=== PATIENT | male | born 1950 | race African-American/Black ===

== ENCOUNTER 2017-06-14 04:38 | Emergency (ER) | payer MEDICAID ==
[~2017-06-14] VITALS: Ht 185.4 cm; Wt 75.0 kg
[~2017-06-14 04:38] MED LIST: LEVO500T2 PO
[2017-06-14 11:05] VITALS: BP 131/86
== END 2017-06-14 11:22 | disposition home or self-care (01) ==
LOC: ER 05:04
DX: S02.82XA Fracture of other specified skull and facial bones, left side, initial encounter for closed fracture (principal); S01.112A Laceration without foreign body of left eyelid and periocular area, initial encounter; Y08.89XA Assault by other specified means, initial encounter; Y93.89 Activity, other specified; Y92.89 Other specified places as the place of occurrence of the external cause; Y99.8 Other external cause status
CPT/HCPCS: 12011; 70450; 70486; 99284; Z7610

== ENCOUNTER 2018-06-05 23:04 | Inpatient (IN) | payer MEDICAID ==
[~2018-06-05] VITALS: Ht 185.4 cm; Wt 68.0 kg
[2018-06-06] VITALS (7 sets, daily range): BP systolic 117–134; BP diastolic 62–70
[2018-06-06] MEDS ORDERED: SODIUM CHLORIDE 0.9% 1,000 ML IV ONE ×2 (00:38)
[2018-06-06] MEDS ORDERED: METHYLPREDNISOLONE SOD SUCC 125 MG/2 ML VIAL IV STA (00:38)
[2018-06-06] MEDS ORDERED: IPRATROPIUM BROMIDE (0.02%) 0.5MG/2.5ML NEB HHN STA (00:38)
[2018-06-06] MEDS ORDERED: ONDANSETRON HCL 4MG/2ML INJ IV STA (00:38)
[2018-06-06] MEDS ORDERED: GUAIFENESIN/CODEINE 200-20MG/10ML UDC PO ONE (00:45)
[2018-06-06 01:24] LABS: BASOPHILS % 0.7 % (0.0-2.0); EOSINOPHILS % 2.7 % (0.0-5.0); HEMATOCRIT. 46.8 % (42.0-52.0); HEMOGLOBIN. 15.1 g/dL (14.0-18.0); LYMPHOCYTES % 20.5 % (20.0-50.0); MEAN CORPUSCULAR HEMOGLOBIN 30.3 pg (28.0-32.0); MEAN PLATELET VOLUME 8.8 fl (7.4-10.4); MONOCYTES % 12.2 % (2.0-8.0); NEUTROPHILS % 63.9 % (40.0-76.0); PLATELET 118 x1000/uL (130-400); RED BLOOD CELL COUNT 4.98 mill/uL (4.7-6.1); RED CELL DISTRIBUTION WIDTH 14.7 % (11.6-14.6)
[2018-06-06 01:35] LABS: CHLORIDE 101 mEq/L (98-107)
[2018-06-06] MEDS: ALBUTEROL (0.083%) 2.5MG/3ML NEB HHN SCH ×3 (01:38→02:15)
[2018-06-06 02:14] LABS: *AMPHETAMINES SCREEN URINE NEGATIVE (NEGATIVE); *BARBITURATES SCREEN URINE NEGATIVE (NEGATIVE); *BENZODIAZEPINES SCREEN URINE NEGATIVE (NEGATIVE)
[2018-06-06 02:15] LABS: *COCAINE SCREEN URINE PRESUMTIVE POSITIVE (NEGATIVE); CANNABINOID URINE SCREEN NEGATIVE (NEGATIVE); METHADONE URINE SCREEN NEGATIVE (NEGATIVE); OPIATES URINE SCREEN NEGATIVE (NEGATIVE); PHENCYCLIDINE URINE SCREEN PRESUMTIVE POSITIVE (NEGATIVE)
[2018-06-06 02:24] LABS: BG BASE EXCESS 4.1 mmol/L (-2.0-2.0); BG CARBOXYHEMOGLOBIN 4.6 % (0.5-1.5); BG FRACTION INSPIRED OXYGEN 40; BG HCO3 ACT 35.5 mmol/L (22.0-26.0); BG METHEMOGLOBIN 0.2 % (0.0-1.5); BG OXYGEN SATURATION 98.9 % (92.0-98.5); BG OXYHEMOGLOBIN 94.2 % (94.0-97.0); BG PCO2 91.1 mmHg (35.0-45.0); BG PH 7.209 (7.350-7.450); BG PO2 191.1 mmHg (75.0-100.0); BG SAMPLE SITE RIGHT RADIAL; BG TOTAL HEMOGLOBIN 14.8 g/dL (12.0-18.0)
[2018-06-06] MEDS ORDERED: LORAZEPAM 2MG/ML CPJ IV PRN (06:30)
[2018-06-06] MEDS ORDERED: LEVOFLOXACIN 500MG PREMIX 100 ML IV SCH ×2 (06:30→09:00)
[2018-06-06] MEDS ORDERED: IPRATROPIUM/ALBUTEROL 0.5-3(2.5)MG/3ML NEB INH PRN (06:30)
[2018-06-06] MEDS ORDERED: MORPHINE SULFATE 10 MG/ML CPJ IV PRN (06:30)
[2018-06-06] MEDS ORDERED: ONDANSETRON HCL 4MG/2ML INJ IV PRN (06:30)
[2018-06-06] MEDS ORDERED: MAGNESIUM/ALUMINUM HYDROXIDE/SIMETHICONE 30ML UDC PO PRN (06:30)
[2018-06-06] MEDS ORDERED: DOCUSATE SODIUM 100MG CAPSULE PO PRN (06:30)
[2018-06-06] MEDS ORDERED: CLONIDINE 0.1MG TABLET PO PRN (06:30)
[2018-06-06] MEDS ORDERED: ACETAMINOPHEN 325MG TABLET PO PRN (06:30)
[2018-06-06] MEDS ORDERED: NA PHOS,M-B/NA PHOS,DI-BA ENEMA 118ML PR PRN (06:30)
[2018-06-06] MEDS ORDERED: DIPHENHYDRAMINE 50MG/ML VIAL IV PRN (06:30)
[2018-06-06] MEDS ORDERED: HYDROCODONE/ACETAMINOPHEN 5/325MG TABLET PO PRN (06:30)
[2018-06-06] MEDS: ASPIRIN 81MG EC TABLET PO SCH (09:00)
[2018-06-06] MEDS: METHYLPREDNISOLONE SOD SUCC 125 MG/2 ML VIAL IV SCH ×3 (09:00→17:46)
[2018-06-06] MEDS: ENOXAPARIN 40MG/0.4ML SYR SUBCUT SCH (09:00)
[2018-06-06 12:49] LABS: CHLORIDE 100 mEq/L (98-107)
[2018-06-06] MEDS: IPRATROPIUM/ALBUTEROL 0.5-3(2.5)MG/3ML NEB HHN SCH ×2 (16:00→20:33)
[2018-06-06] MEDS: AZITHROMYCIN 500 MG in DEXT 5% WATER 250 ML IV SCH (16:30)
[2018-06-06] MEDS: CEFTRIAXONE 1 G PREMIX 50 ML IV SCH (16:30)
[2018-06-06] MEDS: GUAIFENESIN 200MG/10ML SUGAR FREE UDC PO PRN (17:45)
[2018-06-07] VITALS (9 sets, daily range): BP systolic 103–145; BP diastolic 49–85
[2018-06-07] MEDS: IPRATROPIUM/ALBUTEROL 0.5-3(2.5)MG/3ML NEB HHN SCH ×5 (00:31→20:20)
[2018-06-07] MEDS: METHYLPREDNISOLONE SOD SUCC 125 MG/2 ML VIAL IV SCH ×5 (00:35→23:20)
[2018-06-07 07:12] LABS: HEMOGLOBIN. 13.8 g/dL (14.0-18.0); MEAN CORPUSCULAR HEMOGLOBIN 30.9 pg (28.0-32.0); MEAN CORPUSCULAR VOLUME 96.1 fL (80.0-94.0); PLATELET 115 x1000/uL (130-400); RED BLOOD CELL COUNT 4.48 mill/uL (4.7-6.1); RED CELL DISTRIBUTION WIDTH 14.6 % (11.6-14.6)
[2018-06-07 07:25] LABS: CHLORIDE 100 mEq/L (98-107)
[2018-06-07 07:34] LABS: LDL CHOLESTEROL 63 mg/dL (5-100)
[2018-06-07 07:36] LABS: HDL CHOLESTEROL 54 mg/dL (40-59); T4 FREE 0.83 ng/dL (0.76-1.46)
[2018-06-07 08:07] LABS: PLATELET ESTIMATE SLIGHTLY DECREASED
[2018-06-07] MEDS: GUAIFENESIN 200MG/10ML SUGAR FREE UDC PO PRN ×2 (08:40→23:28)
[2018-06-07] MEDS: FLUTICASONE PROPIONATE 50MCG/SPRAY BOTTLE BOTHNSTRLS SCH ×3 (08:41→20:38)
[2018-06-07] MEDS: ENOXAPARIN 40MG/0.4ML SYR SUBCUT SCH (08:41)
[2018-06-07] MEDS: ASPIRIN 81MG EC TABLET PO SCH (08:41)
[2018-06-07] MEDS: CEFTRIAXONE 1 G PREMIX 50 ML IV SCH (12:05)
[2018-06-07 13:33] LABS: BG CARBOXYHEMOGLOBIN 1.6 % (0.5-1.5); BG DEOXYHEMOGLOBIN 5.9 % (0.0-5.0); BG FRACTION INSPIRED OXYGEN 28; BG HCO3 ACT 39.7 mmol/L (22.0-26.0); BG METHEMOGLOBIN 0.1 % (0.0-1.5); BG OXYHEMOGLOBIN 92.4 % (94.0-97.0); BG PH 7.225 (7.350-7.450); BG PO2 76.9 mmHg (75.0-100.0); BG SAMPLE SITE RIGHT BRACHIAL; BG TOTAL HEMOGLOBIN 14.2 g/dL (12.0-18.0); BG VENT MODE NASAL CANNULA
[2018-06-07] MEDS: AZITHROMYCIN 500 MG in DEXT 5% WATER 250 ML IV SCH (14:12)
[2018-06-08] VITALS (12 sets, daily range): BP systolic 120–163; BP diastolic 63–102
[2018-06-08] MEDS: IPRATROPIUM/ALBUTEROL 0.5-3(2.5)MG/3ML NEB HHN SCH ×6 (04:00→20:00)
[2018-06-08] MEDS: METHYLPREDNISOLONE SOD SUCC 125 MG/2 ML VIAL IV SCH ×2 (06:05→12:04)
[2018-06-08 06:58] LABS: HEMATOCRIT. 45.6 % (42.0-52.0); HEMOGLOBIN. 14.5 g/dL (14.0-18.0); MEAN CORPUSCULAR HEMOGLOBIN 30.6 pg (28.0-32.0); MEAN CORPUSCULAR VOLUME 96.1 fL (80.0-94.0); MEAN PLATELET VOLUME 8.9 fl (7.4-10.4); PLATELET 115 x1000/uL (130-400); RED BLOOD CELL COUNT 4.75 mill/uL (4.7-6.1)
[2018-06-08] MEDS: ASPIRIN 81MG EC TABLET PO SCH (08:16)
[2018-06-08] MEDS: FLUTICASONE PROPIONATE 50MCG/SPRAY BOTTLE BOTHNSTRLS SCH ×2 (08:16→20:46)
[2018-06-08] MEDS: GUAIFENESIN 200MG/10ML SUGAR FREE UDC PO PRN ×4 (08:16→23:57)
[2018-06-08] MEDS: ENOXAPARIN 40MG/0.4ML SYR SUBCUT SCH (08:16)
[2018-06-08 08:22] LABS: CHLORIDE 96 mEq/L (98-107)
[2018-06-08 10:54] LABS: PLATELET ESTIMATE DECREASED
[2018-06-08] MEDS: CEFTRIAXONE 1 G PREMIX 50 ML IV SCH (13:26)
[2018-06-08] MEDS: AZITHROMYCIN 500 MG in DEXT 5% WATER 250 ML IV SCH (14:39)
[2018-06-08] MEDS: METHYLPREDNISOLONE SOD SUCC 40 MG/ML VIAL IV SCH (20:46)
[2018-06-09] VITALS (13 sets, daily range): BP systolic 120–172; BP diastolic 60–100
[2018-06-09] MEDS: METHYLPREDNISOLONE SOD SUCC 40 MG/ML VIAL IV SCH ×3 (05:30→21:07)
[2018-06-09] MEDS: IPRATROPIUM/ALBUTEROL 0.5-3(2.5)MG/3ML NEB HHN SCH ×4 (07:56→20:41)
[2018-06-09] MEDS: FLUTICASONE PROPIONATE 50MCG/SPRAY BOTTLE BOTHNSTRLS SCH (08:31)
[2018-06-09] MEDS: ENOXAPARIN 40MG/0.4ML SYR SUBCUT SCH (08:31)
[2018-06-09] MEDS: ASPIRIN 81MG EC TABLET PO SCH (08:31)
[2018-06-09 12:33] LABS: BG BASE EXCESS 17.3 mmol/L (-2.0-2.0); BG CARBOXYHEMOGLOBIN 1.4 % (0.5-1.5); BG DEOXYHEMOGLOBIN 6.3 % (0.0-5.0); BG FRACTION INSPIRED OXYGEN 28; BG HCO3 ACT 48.4 mmol/L (22.0-26.0); BG METHEMOGLOBIN 0.2 % (0.0-1.5); BG OXYGEN SATURATION 93.6 % (92.0-98.5); BG OXYHEMOGLOBIN 92.1 % (94.0-97.0); BG PCO2 92.7 mmHg (35.0-45.0); BG PH 7.336 (7.350-7.450); BG PO2 67.4 mmHg (75.0-100.0); BG SAMPLE SITE RIGHT FEMORAL; BG TOTAL HEMOGLOBIN 14.8 g/dL (12.0-18.0); BG VENT MODE NASAL CANNULA
[2018-06-09] MEDS: CEFTRIAXONE 1 G PREMIX 50 ML IV SCH (15:12)
[2018-06-09] MEDS: AZITHROMYCIN 500 MG in DEXT 5% WATER 250 ML IV SCH (15:13)
[2018-06-10] VITALS (12 sets, daily range): BP systolic 127–159; BP diastolic 69–116
[2018-06-10] MEDS: IPRATROPIUM/ALBUTEROL 0.5-3(2.5)MG/3ML NEB HHN SCH ×7 (00:40→22:49)
[2018-06-10] MEDS: METHYLPREDNISOLONE SOD SUCC 40 MG/ML VIAL IV SCH ×3 (06:46→21:45)
[2018-06-10 06:47] LABS: HEMATOCRIT. 42.6 % (42.0-52.0); HEMOGLOBIN. 13.9 g/dL (14.0-18.0); MEAN CORPUSCULAR HEMOGLOBIN 30.7 pg (28.0-32.0); MEAN CORPUSCULAR VOLUME 94.2 fL (80.0-94.0); MEAN PLATELET VOLUME 8.7 fl (7.4-10.4); PLATELET 123 x1000/uL (130-400); RED BLOOD CELL COUNT 4.52 mill/uL (4.7-6.1); RED CELL DISTRIBUTION WIDTH 14.6 % (11.6-14.6)
[2018-06-10 07:32] LABS: CHLORIDE 94 mEq/L (98-107)
[2018-06-10] MEDS: ENOXAPARIN 40MG/0.4ML SYR SUBCUT SCH (08:40)
[2018-06-10] MEDS: ASPIRIN 81MG EC TABLET PO SCH (08:40)
[2018-06-10 10:47] LABS: PLATELET ESTIMATE SLIGHTLY DECREASED
[2018-06-10] MEDS: CEFTRIAXONE 1 G PREMIX 50 ML IV SCH (14:50)
[2018-06-10] MEDS: AZITHROMYCIN 500 MG in DEXT 5% WATER 250 ML IV SCH (14:50)
[2018-06-11] VITALS (8 sets, daily range): BP systolic 110–146; BP diastolic 64–85
[2018-06-11] MEDS: METHYLPREDNISOLONE SOD SUCC 40 MG/ML VIAL IV SCH ×2 (06:00→14:29)
[2018-06-11] MEDS: IPRATROPIUM/ALBUTEROL 0.5-3(2.5)MG/3ML NEB HHN SCH ×4 (08:32→20:37)
[2018-06-11] MEDS: ASPIRIN 81MG EC TABLET PO SCH (09:17)
[2018-06-11] MEDS: ENOXAPARIN 40MG/0.4ML SYR SUBCUT SCH (09:19)
[2018-06-11] MEDS: AZITHROMYCIN 500 MG TABLET PO SCH (09:22)
[2018-06-11 09:39] LABS: BG BASE EXCESS 16.4 mmol/L (-2.0-2.0); BG CARBOXYHEMOGLOBIN 1.7 % (0.5-1.5); BG DEOXYHEMOGLOBIN 9.7 % (0.0-5.0); BG FRACTION INSPIRED OXYGEN 21; BG HCO3 ACT 46.1 mmol/L (22.0-26.0); BG METHEMOGLOBIN 0.3 % (0.0-1.5); BG OXYGEN SATURATION 90.1 % (92.0-98.5); BG OXYHEMOGLOBIN 88.3 % (94.0-97.0); BG PCO2 81.1 mmHg (35.0-45.0); BG PH 7.373 (7.350-7.450); BG PO2 60.1 mmHg (75.0-100.0); BG SAMPLE SITE RIGHT RADIAL; BG TOTAL HEMOGLOBIN 14.6 g/dL (12.0-18.0); BG VENT MODE ROOM AIR
[2018-06-11] MEDS: CEFTRIAXONE 1 G PREMIX 50 ML IV SCH (14:23)
[2018-06-11] MEDS ORDERED: BENZONATATE 100MG CAPSULE PO PRN (17:30)
[2018-06-11] MEDS: GUAIFENESIN 600MG ER TABLET PO SCH (21:23)
[2018-06-12] VITALS: BP 126/79
[2018-06-12 04:00] VITALS: BP 161/83
[2018-06-12] MEDS: IPRATROPIUM/ALBUTEROL 0.5-3(2.5)MG/3ML NEB HHN SCH ×6 (04:00→20:12)
[2018-06-12 08:00] VITALS: BP 128/68
[2018-06-12] MEDS: GUAIFENESIN 600MG ER TABLET PO SCH ×2 (09:40→20:42)
[2018-06-12] MEDS: AZITHROMYCIN 500 MG TABLET PO SCH (09:40)
[2018-06-12] MEDS: ASPIRIN 81MG EC TABLET PO SCH (09:40)
[2018-06-12] MEDS: ENOXAPARIN 40MG/0.4ML SYR SUBCUT SCH (09:41)
[2018-06-12] MEDS: METHYLPREDNISOLONE SOD SUCC 40 MG/ML VIAL IV SCH (09:42)
[2018-06-12 10:02] VITALS: BP 105/62
[2018-06-12 12:00] VITALS: BP 107/66
[2018-06-12 16:00] VITALS: BP 111/66
[2018-06-12] MEDS: CEFTRIAXONE 1 G PREMIX 50 ML IV SCH (16:24)
[2018-06-13] MEDS: IPRATROPIUM/ALBUTEROL 0.5-3(2.5)MG/3ML NEB HHN SCH ×4 (00:06→20:46)
[2018-06-13 04:00] VITALS: BP 107/62
[2018-06-13 08:00] VITALS: BP 109/71
[2018-06-13] MEDS: ASPIRIN 81MG EC TABLET PO SCH (09:24)
[2018-06-13] MEDS: GUAIFENESIN 600MG ER TABLET PO SCH ×2 (09:24→20:50)
[2018-06-13] MEDS: METHYLPREDNISOLONE SOD SUCC 40 MG/ML VIAL IV SCH (09:24)
[2018-06-13] MEDS: AZITHROMYCIN 500 MG TABLET PO SCH (09:25)
[2018-06-13] MEDS: ENOXAPARIN 40MG/0.4ML SYR SUBCUT SCH (09:26)
[2018-06-13] MEDS ORDERED: HYDROMORPHONE HCL/PF 2MG/ML CPJ ONE (11:06)
[2018-06-13] MEDS: CEFTRIAXONE 1 G PREMIX 50 ML IV SCH (13:01)
[2018-06-13 20:00] VITALS: BP 108/66
[2018-06-13] MEDS: BUDESONIDE 0.5MG/2ML NEB HHN SCH (20:45)
[2018-06-14] VITALS: BP 110/62
[2018-06-14] MEDS: IPRATROPIUM/ALBUTEROL 0.5-3(2.5)MG/3ML NEB HHN SCH ×5 (03:24→20:30)
[2018-06-14 04:00] VITALS: BP 116/68
[2018-06-14] MEDS: BUDESONIDE 0.5MG/2ML NEB HHN SCH ×2 (07:33→20:30)
[2018-06-14 08:00] VITALS: BP 106/57
[2018-06-14] MEDS: GUAIFENESIN 600MG ER TABLET PO SCH ×2 (08:26→21:07)
[2018-06-14] MEDS: ASPIRIN 81MG EC TABLET PO SCH (08:26)
[2018-06-14] MEDS: PREDNISONE 20MG TABLET PO SCH (08:27)
[2018-06-14] MEDS: ENOXAPARIN 40MG/0.4ML SYR SUBCUT SCH (08:28)
[2018-06-14 12:00] VITALS: BP 112/72
[2018-06-14 16:00] VITALS: BP 114/75
[2018-06-14 20:00] VITALS: BP 104/68
[2018-06-15] VITALS: BP 105/68
[2018-06-15] MEDS: IPRATROPIUM/ALBUTEROL 0.5-3(2.5)MG/3ML NEB HHN SCH ×6 (01:02→20:33)
[2018-06-15 04:00] VITALS: BP 113/69
[2018-06-15] MEDS: PREDNISONE 20MG TABLET PO SCH (08:32)
[2018-06-15] MEDS: GUAIFENESIN 600MG ER TABLET PO SCH ×2 (08:32→21:21)
[2018-06-15] MEDS: ASPIRIN 81MG EC TABLET PO SCH (08:32)
[2018-06-15] MEDS: ENOXAPARIN 40MG/0.4ML SYR SUBCUT SCH (08:40)
[2018-06-15] MEDS: BUDESONIDE 0.5MG/2ML NEB HHN SCH ×2 (08:45→20:33)
[2018-06-15 20:00] VITALS: BP 109/70
[2018-06-16] VITALS: BP 116/73
[2018-06-16 04:00] VITALS: BP 110/72
[2018-06-16 08:00] VITALS: BP 110/69
[2018-06-16] MEDS: IPRATROPIUM/ALBUTEROL 0.5-3(2.5)MG/3ML NEB HHN SCH ×4 (08:23→15:50)
[2018-06-16] MEDS: BUDESONIDE 0.5MG/2ML NEB HHN SCH (08:23)
[2018-06-16] MEDS: ASPIRIN 81MG EC TABLET PO SCH (10:28)
[2018-06-16] MEDS: GUAIFENESIN 600MG ER TABLET PO SCH (10:28)
[2018-06-16] MEDS: ENOXAPARIN 40MG/0.4ML SYR SUBCUT SCH (10:33)
[2018-06-16 12:00] VITALS: BP 96/57
[2018-06-16 16:00] VITALS: BP 91/50
[2018-06-16] MEDS ORDERED: AZIT500T5 MT (17:19)
[2018-06-16] MEDS ORDERED: P20 MT (17:20)
[2018-06-16] MEDS ORDERED: ATROV INH (17:21)
[2018-06-16 17:24] VITALS: BP 91/50
[2018-06-16] MEDS ORDERED: ALBU2.5V13 NEB (17:24)
== END 2018-06-16 18:35 | DRG 816 ==
LOC: ER 23:37 → 5EST 06-06 02:57 → EDBEDREQ 06-06 03:01 → EDBEDREQSVC 06-06 03:01 → ENRESERV 06-06 05:18 → 5WST 06-11 11:55
PROVIDERS: ADMIT Internal Medicine; ATTEND Internal Medicine
PROC: 5A09357 Assistance with Respiratory Ventilation, Less than 24 Consecutive Hours, Continuous Positive Airway Pressure (ICD-10-PCS; principal; 2018-06-06)
PROC: 5A09357 Assistance with Respiratory Ventilation, Less than 24 Consecutive Hours, Continuous Positive Airway Pressure (ICD-10-PCS; 2018-06-07)
DX: T40.5X1A Poisoning by cocaine, accidental (unintentional), initial encounter (principal); J96.22 Acute and chronic respiratory failure with hypercapnia; J69.0 Pneumonitis due to inhalation of food and vomit; G93.41 Metabolic encephalopathy; E87.2 Acidosis; R65.10 Systemic inflammatory response syndrome (SIRS) of non-infectious origin without acute organ dysfunction; E87.5 Hyperkalemia; J68.0 Bronchitis and pneumonitis due to chemicals, gases, fumes and vapors; J44.1 Chronic obstructive pulmonary disease with (acute) exacerbation; F14.10 Cocaine abuse, uncomplicated; F17.210 Nicotine dependence, cigarettes, uncomplicated; I10 Essential (primary) hypertension; J32.9 Chronic sinusitis, unspecified; J31.0 Chronic rhinitis; F16.90 Hallucinogen use, unspecified, uncomplicated; T40.991A Poisoning by other psychodysleptics [hallucinogens], accidental (unintentional), initial encounter; Y92.89 Other specified places as the place of occurrence of the external cause; Z87.01 Personal history of pneumonia (recurrent)
CPT/HCPCS: 36415; 36600; 71045; 80048; 80061; 80305; 82375; 82805; 83605; 83880; 84439; 84443; 84484; 93005; 94618; 94640; 94660; 96361; 96374; 96375; 97116; 97162; 97166; 99291; J0456; J0696; J1170; J1650; J1956; J2405; J2920; J2930; J7030; J7050; J7060; J7512; J7611; J7620; J7626

== ENCOUNTER 2019-04-06 17:11 | Inpatient (IN) | payer MEDICAID ==
[~2019-04-06] VITALS: Ht 198.1 cm; Wt 70.8 kg
[~2019-04-06 17:11] MED LIST changes: +ALBU2.5V13 NEB; +ATROV INH; +AZIT500T5 MT; -LEVO500T2 PO; +P20 MT
[2019-04-06 18:12] LABS: BASOPHILS % 0.9 % (0.0-2.0); EOSINOPHILS % 0.9 % (0.0-5.0); HEMATOCRIT. 48.1 % (42.0-52.0); HEMOGLOBIN. 15.7 g/dL (14.0-18.0); LYMPHOCYTES % 19.8 % (20.0-50.0); MEAN CORPUSCULAR HEMOGLOBIN 30.8 pg (28.0-32.0); MEAN CORPUSCULAR VOLUME 94.6 fL (80.0-94.0); MEAN PLATELET VOLUME 9.3 fl (7.4-10.4); MONOCYTES % 14.5 % (2.0-8.0); NEUTROPHILS % 63.9 % (40.0-76.0); PLATELET 110 x1000/uL (130-400); RED BLOOD CELL COUNT 5.09 mill/uL (4.7-6.1)
[2019-04-06 18:15] LABS: CHLORIDE 104 mEq/L (98-107)
[2019-04-06 18:19] LABS: ETHANOL BLOOD < 10 mg/dL
[2019-04-06] MEDS ORDERED: SODIUM CHLORIDE 0.9% 1,000 ML IV ONE (20:41)
[2019-04-06] MEDS ORDERED: ALBUTEROL (0.083%) 2.5MG/3ML NEB HHN STA (20:41)
[2019-04-06] MEDS ORDERED: METHYLPREDNISOLONE SOD SUCC 125 MG/2 ML VIAL IV STA (20:41)
[2019-04-06 21:11] LABS: *AMPHETAMINES SCREEN URINE NEGATIVE (NEGATIVE); *BARBITURATES SCREEN URINE NEGATIVE (NEGATIVE); *BENZODIAZEPINES SCREEN URINE NEGATIVE (NEGATIVE); *COCAINE SCREEN URINE PRESUMTIVE POSITIVE (NEGATIVE); CANNABINOID URINE SCREEN NEGATIVE (NEGATIVE); METHADONE URINE SCREEN NEGATIVE (NEGATIVE); OPIATES URINE SCREEN NEGATIVE (NEGATIVE); PHENCYCLIDINE URINE SCREEN PRESUMTIVE POSITIVE (NEGATIVE)
[2019-04-06 22:44] LABS: BG CARBOXYHEMOGLOBIN 3.1 % (0.5-1.5); BG DEOXYHEMOGLOBIN 4.2 % (0.0-5.0); BG FRACTION INSPIRED OXYGEN 32; BG HCO3 ACT 35.2 mmol/L (22.0-26.0); BG METHEMOGLOBIN 0.4 % (0.0-1.5); BG OXYGEN SATURATION 95.6 % (92.0-98.5); BG OXYHEMOGLOBIN 92.3 % (94.0-97.0); BG PCO2 86.1 mmHg (35.0-45.0); BG PO2 89.7 mmHg (75.0-100.0); BG SAMPLE SITE RIGHT RADIAL; BG TOTAL HEMOGLOBIN 16.4 g/dL (12.0-18.0); BG VENT MODE NASAL CANNULA
[2019-04-06] MEDS ORDERED: NITROGLYCERIN 0.4MG TABLET SL SL PRN (22:45)
[2019-04-06] MEDS ORDERED: IPRATROPIUM/ALBUTEROL 0.5-3(2.5)MG/3ML NEB NEB PRN (22:45)
[2019-04-06] MEDS ORDERED: ZOLPIDEM TARTRATE 5MG TABLET PO PRN (22:45)
[2019-04-06] MEDS ORDERED: LORAZEPAM 0.5MG TABLET PO PRN (22:45)
[2019-04-06] MEDS ORDERED: ONDANSETRON HCL 4MG/2ML INJ IV PRN (22:45)
[2019-04-06] MEDS ORDERED: LEVOFLOXACIN 500MG PREMIX 100 ML IV SCH (22:45)
[2019-04-06] MEDS ORDERED: MAGNESIUM/ALUMINUM HYDROXIDE/SIMETHICONE 30ML UDC PO PRN (22:45)
[2019-04-06] MEDS ORDERED: DIPHENHYDRAMINE 50MG/ML VIAL IV PRN (22:45)
[2019-04-06] MEDS ORDERED: KETOROLAC 15MG/ML VIAL IV PRN (22:45)
[2019-04-06] MEDS ORDERED: CLONIDINE 0.1MG TABLET PO PRN (22:45)
[2019-04-06] MEDS ORDERED: ACETAMINOPHEN 325MG TABLET PO PRN (22:45)
[2019-04-06] MEDS: HYDRALAZINE 20MG/ML VIAL IV ONE ×2 (22:57→23:46)
[2019-04-07] VITALS (12 sets, daily range): BP systolic 106–142; BP diastolic 62–98
[2019-04-07] MEDS: IPRATROPIUM/ALBUTEROL 0.5-3(2.5)MG/3ML NEB HHN SCH ×6 (00:56→20:56)
[2019-04-07] MEDS: LEVOFLOXACIN 500MG PREMIX 100 ML IV SCH (01:25)
[2019-04-07] MEDS: DILTIAZEM HCL 60MG TABLET PO SCH ×4 (01:26→18:25)
[2019-04-07] MEDS: METHYLPREDNISOLONE SOD SUCC 125 MG/2 ML VIAL IV SCH ×3 (06:17→21:46)
[2019-04-07] MEDS: GUAIFENESIN/DM 600MG/30MG ER TAB 12HR PO SCH ×2 (09:11→20:30)
[2019-04-07] MEDS: ASPIRIN 325MG EC TABLET PO SCH (09:11)
[2019-04-07 10:09] LABS: BG BASE EXCESS 4.9 mmol/L (-2.0-2.0); BG BILEVEL POS AIRWAY PRESSURE 15/5; BG CARBOXYHEMOGLOBIN 1.8 % (0.5-1.5); BG DEOXYHEMOGLOBIN 0.5 % (0.0-5.0); BG FRACTION INSPIRED OXYGEN 50; BG HCO3 ACT 34.1 mmol/L (22.0-26.0); BG METHEMOGLOBIN 0.4 % (0.0-1.5); BG OXYGEN SATURATION 99.5 % (92.0-98.5); BG OXYHEMOGLOBIN 97.3 % (94.0-97.0); BG PCO2 70.6 mmHg (35.0-45.0); BG PH 7.302 (7.350-7.450); BG PO2 210.9 mmHg (75.0-100.0); BG SAMPLE SITE RIGHT RADIAL; BG TOTAL HEMOGLOBIN 16.1 g/dL (12.0-18.0); BG VENT MODE MASK - BIPAP; BG VENT RATE 16 set
[2019-04-07] MEDS: ENOXAPARIN 40MG/0.4ML SYR SUBCUT SCH (13:07)
[2019-04-07 13:15] LABS: CREATINE KINASE 126 IU/L (39-308)
[2019-04-07] MEDS ORDERED: LIDOCAINE HCL/PF 1% 2ML VIAL ONE (13:44)
[2019-04-07 14:19] LABS: CREATINE KINASE 73 IU/L (39-308)
[2019-04-07 14:20] LABS: CREATINE KINASE MB FRACTION 2.8 ng/mL (0.5-3.6)
[2019-04-08] VITALS (12 sets, daily range): BP systolic 92–135; BP diastolic 51–96
[2019-04-08] MEDS: LEVOFLOXACIN 500MG PREMIX 100 ML IV SCH (00:08)
[2019-04-08] MEDS: DILTIAZEM HCL 60MG TABLET PO SCH ×4 (00:08→19:10)
[2019-04-08] MEDS: IPRATROPIUM/ALBUTEROL 0.5-3(2.5)MG/3ML NEB HHN SCH ×6 (00:46→20:36)
[2019-04-08] MEDS: METHYLPREDNISOLONE SOD SUCC 125 MG/2 ML VIAL IV SCH ×3 (05:46→21:06)
[2019-04-08] MEDS: ENOXAPARIN 40MG/0.4ML SYR SUBCUT SCH (08:24)
[2019-04-08] MEDS: ASPIRIN 325MG EC TABLET PO SCH (08:55)
[2019-04-08] MEDS: GUAIFENESIN/DM 600MG/30MG ER TAB 12HR PO SCH ×2 (08:55→21:06)
[2019-04-09] VITALS (13 sets, daily range): BP systolic 100–131; BP diastolic 54–89
[2019-04-09] MEDS: LEVOFLOXACIN 500MG PREMIX 100 ML IV SCH (00:02)
[2019-04-09] MEDS: DILTIAZEM HCL 60MG TABLET PO SCH ×4 (00:02→18:02)
[2019-04-09] MEDS: IPRATROPIUM/ALBUTEROL 0.5-3(2.5)MG/3ML NEB HHN SCH ×5 (00:40→20:03)
[2019-04-09] MEDS: METHYLPREDNISOLONE SOD SUCC 125 MG/2 ML VIAL IV SCH (05:46)
[2019-04-09] MEDS: ASPIRIN 325MG EC TABLET PO SCH (08:00)
[2019-04-09] MEDS: ENOXAPARIN 40MG/0.4ML SYR SUBCUT SCH (08:01)
[2019-04-09] MEDS: GUAIFENESIN/DM 600MG/30MG ER TAB 12HR PO SCH ×2 (08:07→21:13)
[2019-04-09] MEDS: ACETYLCYSTEINE 100MG/ML 10% VIAL 4ML INH SCH (16:14)
[2019-04-09] MEDS: PREDNISONE 20MG TABLET PO SCH (18:01)
[2019-04-10] VITALS (17 sets, daily range): BP systolic 97–134; BP diastolic 39–79
[2019-04-10] MEDS: IPRATROPIUM/ALBUTEROL 0.5-3(2.5)MG/3ML NEB HHN SCH ×6 (00:10→21:00)
[2019-04-10] MEDS: ACETYLCYSTEINE 100MG/ML 10% VIAL 4ML INH SCH ×4 (00:11→16:46)
[2019-04-10] MEDS: DILTIAZEM HCL 60MG TABLET PO SCH ×4 (00:22→17:09)
[2019-04-10] MEDS: PREDNISONE 20MG TABLET PO SCH ×2 (08:43→17:06)
[2019-04-10] MEDS: DOCUSATE SODIUM 100MG CAPSULE PO PRN (08:44)
[2019-04-10] MEDS: ASPIRIN 325MG EC TABLET PO SCH (08:44)
[2019-04-10] MEDS: ENOXAPARIN 40MG/0.4ML SYR SUBCUT SCH (08:45)
[2019-04-10] MEDS: GUAIFENESIN/DM 600MG/30MG ER TAB 12HR PO SCH ×2 (08:45→21:35)
[2019-04-10 11:11] LABS: BG BASE EXCESS 11.7 mmol/L (-2.0-2.0); BG CARBOXYHEMOGLOBIN 1.5 % (0.5-1.5); BG DEOXYHEMOGLOBIN 12.2 % (0.0-5.0); BG FRACTION INSPIRED OXYGEN 21; BG HCO3 ACT 40.6 mmol/L (22.0-26.0); BG METHEMOGLOBIN 0.2 % (0.0-1.5); BG OXYGEN SATURATION 87.6 % (92.0-98.5); BG OXYHEMOGLOBIN 86.1 % (94.0-97.0); BG PCO2 71.7 mmHg (35.0-45.0); BG PH 7.371 (7.350-7.450); BG PO2 52.3 mmHg (75.0-100.0); BG SAMPLE SITE RIGHT BRACHIAL; BG TOTAL HEMOGLOBIN 15.4 g/dL (12.0-18.0); BG VENT MODE ROOM AIR
[2019-04-11] VITALS (18 sets, daily range): BP systolic 117–150; BP diastolic 56–130
[2019-04-11] MEDS: DILTIAZEM HCL 60MG TABLET PO SCH ×4 (01:06→17:42)
[2019-04-11] MEDS: ACETYLCYSTEINE 100MG/ML 10% VIAL 4ML INH SCH ×3 (01:10→23:55)
[2019-04-11] MEDS: IPRATROPIUM/ALBUTEROL 0.5-3(2.5)MG/3ML NEB HHN SCH ×6 (01:10→23:55)
[2019-04-11] MEDS: ASPIRIN 325MG EC TABLET PO SCH (08:33)
[2019-04-11] MEDS: PREDNISONE 20MG TABLET PO SCH ×2 (08:34→17:42)
[2019-04-11] MEDS: ENOXAPARIN 40MG/0.4ML SYR SUBCUT SCH (08:36)
[2019-04-11] MEDS: GUAIFENESIN/DM 600MG/30MG ER TAB 12HR PO SCH ×2 (10:54→21:22)
[2019-04-12] VITALS (9 sets, daily range): BP systolic 131–148; BP diastolic 58–96
[2019-04-12] MEDS: DILTIAZEM HCL 60MG TABLET PO SCH ×4 (00:20→17:41)
[2019-04-12] MEDS: ENOXAPARIN 40MG/0.4ML SYR SUBCUT SCH (09:27)
[2019-04-12] MEDS: PREDNISONE 20MG TABLET PO SCH ×2 (09:27→17:41)
[2019-04-12] MEDS: ASPIRIN 325MG EC TABLET PO SCH (09:27)
[2019-04-12] MEDS: GUAIFENESIN/DM 600MG/30MG ER TAB 12HR PO SCH ×2 (09:27→21:03)
[2019-04-12] MEDS: IPRATROPIUM/ALBUTEROL 0.5-3(2.5)MG/3ML NEB HHN SCH ×3 (11:10→19:53)
[2019-04-12] MEDS: PIPERACILLIN/TAZOBACTAM 3.375 G in DEXT 5% WATER 100 ML IV SCH (18:36)
[2019-04-13] VITALS: BP 138/78
[2019-04-13] MEDS: IPRATROPIUM/ALBUTEROL 0.5-3(2.5)MG/3ML NEB HHN SCH ×6 (00:13→21:10)
[2019-04-13] MEDS: ACETYLCYSTEINE 100MG/ML 10% VIAL 4ML INH SCH ×3 (00:13→16:17)
[2019-04-13] MEDS: DILTIAZEM HCL 60MG TABLET PO SCH ×5 (01:02→23:30)
[2019-04-13] MEDS: PIPERACILLIN/TAZOBACTAM 3.375 G in DEXT 5% WATER 100 ML IV SCH ×5 (01:02→23:30)
[2019-04-13 04:00] VITALS: BP 140/91
[2019-04-13 07:20] LABS: HEMATOCRIT. 44.6 % (42.0-52.0); HEMOGLOBIN. 14.4 g/dL (14.0-18.0); MEAN CORPUSCULAR HEMOGLOBIN 30.5 pg (28.0-32.0); MEAN CORPUSCULAR VOLUME 94.5 fL (80.0-94.0); MEAN PLATELET VOLUME 8.9 fl (7.4-10.4); PLATELET 122 x1000/uL (130-400); RED BLOOD CELL COUNT 4.72 mill/uL (4.7-6.1); RED CELL DISTRIBUTION WIDTH 14.8 % (11.6-14.6)
[2019-04-13 08:00] VITALS: BP 120/74
[2019-04-13] MEDS: GUAIFENESIN/DM 600MG/30MG ER TAB 12HR PO SCH ×2 (09:19→20:41)
[2019-04-13] MEDS: ASPIRIN 325MG EC TABLET PO SCH (09:19)
[2019-04-13] MEDS: ENOXAPARIN 40MG/0.4ML SYR SUBCUT SCH (09:20)
[2019-04-13] MEDS: PREDNISONE 20MG TABLET PO SCH ×2 (09:20→19:18)
[2019-04-13] MEDS ORDERED: FUROSEMIDE 20MG/2ML VIAL IVP SCH (10:45)
[2019-04-13 12:00] VITALS: BP 135/78
[2019-04-13 16:00] VITALS: BP 123/70
[2019-04-13 18:02] LABS: PLATELET ESTIMATE DECREASED
[2019-04-13 20:00] VITALS: BP 131/79
[2019-04-14] VITALS: BP 130/76
[2019-04-14] MEDS: ACETYLCYSTEINE 100MG/ML 10% VIAL 4ML INH SCH (01:18)
[2019-04-14] MEDS: IPRATROPIUM/ALBUTEROL 0.5-3(2.5)MG/3ML NEB HHN SCH ×6 (01:18→20:41)
[2019-04-14 04:00] VITALS: BP 124/76
[2019-04-14] MEDS: DILTIAZEM HCL 60MG TABLET PO SCH ×4 (05:11→23:04)
[2019-04-14] MEDS: PIPERACILLIN/TAZOBACTAM 3.375 G in DEXT 5% WATER 100 ML IV SCH ×4 (05:11→23:03)
[2019-04-14 08:38] VITALS: BP 131/82
[2019-04-14] MEDS: PREDNISONE 20MG TABLET PO SCH (08:39)
[2019-04-14] MEDS: ASPIRIN 325MG EC TABLET PO SCH (10:00)
[2019-04-14] MEDS: GUAIFENESIN/DM 600MG/30MG ER TAB 12HR PO SCH ×2 (10:00→20:33)
[2019-04-14] MEDS: ENOXAPARIN 40MG/0.4ML SYR SUBCUT SCH (10:01)
[2019-04-14 11:51] LABS: BG BASE EXCESS 17.2 mmol/L (-2.0-2.0); BG DEOXYHEMOGLOBIN 12.7 % (0.0-5.0); BG HCO3 ACT 46.6 mmol/L (22.0-26.0); BG METHEMOGLOBIN 0.2 % (0.0-1.5); BG OXYGEN SATURATION 87.1 % (92.0-98.5); BG OXYHEMOGLOBIN 86.1 % (94.0-97.0); BG PO2 52.3 mmHg (75.0-100.0); BG SAMPLE SITE RIGHT BRACHIAL; BG TOTAL HEMOGLOBIN 15.2 g/dL (12.0-18.0); BG VENT MODE ROOM AIR
[2019-04-14 12:37] VITALS: BP 130/82
[2019-04-14 16:08] VITALS: BP 137/80
[2019-04-14 20:00] VITALS: BP 122/77
[2019-04-15] VITALS: BP 132/72
[2019-04-15] MEDS: IPRATROPIUM/ALBUTEROL 0.5-3(2.5)MG/3ML NEB HHN SCH ×6 (00:43→21:38)
[2019-04-15] MEDS: ACETYLCYSTEINE 100MG/ML 10% VIAL 4ML INH SCH (00:44)
[2019-04-15 04:00] VITALS: BP 125/82
[2019-04-15] MEDS: PIPERACILLIN/TAZOBACTAM 3.375 G in DEXT 5% WATER 100 ML IV SCH ×2 (05:01→12:22)
[2019-04-15] MEDS: DILTIAZEM HCL 60MG TABLET PO SCH ×3 (05:01→17:31)
[2019-04-15 07:57] VITALS: BP 155/77
[2019-04-15] MEDS: ENOXAPARIN 40MG/0.4ML SYR SUBCUT SCH (08:38)
[2019-04-15] MEDS: ASPIRIN 325MG EC TABLET PO SCH (08:38)
[2019-04-15] MEDS: PREDNISONE 20MG TABLET PO SCH (08:39)
[2019-04-15] MEDS: GUAIFENESIN/DM 600MG/30MG ER TAB 12HR PO SCH ×2 (08:44→21:53)
[2019-04-15 12:00] VITALS: BP 126/73
[2019-04-15] MEDS: DOCUSATE SODIUM 100MG CAPSULE PO PRN (17:22)
[2019-04-15 20:00] VITALS: BP 122/76
[2019-04-16] VITALS: BP 136/84
[2019-04-16] MEDS: DILTIAZEM HCL 60MG TABLET PO SCH ×5 (00:20→23:58)
[2019-04-16] MEDS: PIPERACILLIN/TAZOBACTAM 3.375 G in DEXT 5% WATER 100 ML IV SCH ×5 (00:20→23:58)
[2019-04-16] MEDS: IPRATROPIUM/ALBUTEROL 0.5-3(2.5)MG/3ML NEB HHN SCH ×6 (02:01→20:22)
[2019-04-16 04:00] VITALS: BP 130/79
[2019-04-16 08:44] VITALS: BP 112/76
[2019-04-16] MEDS: ASPIRIN 325MG EC TABLET PO SCH (09:26)
[2019-04-16] MEDS: PREDNISONE 20MG TABLET PO SCH (09:26)
[2019-04-16] MEDS: ENOXAPARIN 40MG/0.4ML SYR SUBCUT SCH (09:29)
[2019-04-16 11:59] VITALS: BP 130/68
[2019-04-16] MEDS ORDERED: ENOXAPARIN 30MG/0.3ML SYR SUBCUT NR (15:30)
[2019-04-16 15:58] VITALS: BP 122/73
[2019-04-16] MEDS: GUAIFENESIN/DM 600MG/30MG ER TAB 12HR PO SCH ×2 (16:54→20:50)
[2019-04-16 20:00] VITALS: BP 132/80
[2019-04-16] MEDS ORDERED: IOHEXOL-350 100 ML BOTTLE ONE (22:34)
[2019-04-16] MEDS: ENOXAPARIN 80MG/0.8ML SYR SUBCUT SCH (23:58)
[2019-04-17] VITALS: BP 123/79
[2019-04-17] MEDS: IPRATROPIUM/ALBUTEROL 0.5-3(2.5)MG/3ML NEB HHN SCH ×6 (00:29→21:36)
[2019-04-17 04:00] VITALS: BP 124/76
[2019-04-17] MEDS: PIPERACILLIN/TAZOBACTAM 3.375 G in DEXT 5% WATER 100 ML IV SCH ×4 (06:12→23:55)
[2019-04-17] MEDS: DILTIAZEM HCL 60MG TABLET PO SCH ×3 (06:12→18:30)
[2019-04-17 08:00] VITALS: BP 115/61
[2019-04-17] MEDS: GUAIFENESIN 200MG/10ML SUGAR FREE UDC PO PRN (09:23)
[2019-04-17] MEDS: PREDNISONE 20MG TABLET PO SCH (09:23)
[2019-04-17] MEDS: ASPIRIN 325MG EC TABLET PO SCH (09:23)
[2019-04-17] MEDS: GUAIFENESIN/DM 600MG/30MG ER TAB 12HR PO SCH ×2 (09:26→20:58)
[2019-04-17 12:00] VITALS: BP 121/81
[2019-04-17] MEDS: ENOXAPARIN 80MG/0.8ML SYR SUBCUT SCH (12:05)
[2019-04-17 16:00] VITALS: BP 123/77
[2019-04-17 20:00] VITALS: BP 120/69
[2019-04-18] VITALS: BP 150/91
[2019-04-18] MEDS: DILTIAZEM HCL 60MG TABLET PO SCH ×4 (00:44→18:00)
[2019-04-18] MEDS: IPRATROPIUM/ALBUTEROL 0.5-3(2.5)MG/3ML NEB HHN SCH ×6 (00:47→20:45)
[2019-04-18 04:00] VITALS: BP 145/80
[2019-04-18] MEDS: PIPERACILLIN/TAZOBACTAM 3.375 G in DEXT 5% WATER 100 ML IV SCH ×3 (05:53→18:18)
[2019-04-18 08:00] VITALS: BP 115/61
[2019-04-18] MEDS: ENOXAPARIN 40MG/0.4ML SYR SUBCUT SCH (09:00)
[2019-04-18] MEDS: PREDNISONE 20MG TABLET PO SCH (10:01)
[2019-04-18] MEDS: GUAIFENESIN/DM 600MG/30MG ER TAB 12HR PO SCH ×2 (10:01→21:34)
[2019-04-18] MEDS: ASPIRIN 325MG EC TABLET PO SCH (10:01)
[2019-04-18 12:00] VITALS: BP 121/80
[2019-04-18 16:00] VITALS: BP 109/72
[2019-04-18 20:20] VITALS: BP 111/73
[2019-04-19 00:41] VITALS: BP 115/70
[2019-04-19] MEDS: DILTIAZEM HCL 60MG TABLET PO SCH ×4 (00:50→18:00)
[2019-04-19] MEDS: PIPERACILLIN/TAZOBACTAM 3.375 G in DEXT 5% WATER 100 ML IV SCH ×4 (00:50→18:22)
[2019-04-19 04:00] VITALS: BP 121/82
[2019-04-19 08:00] VITALS: BP 130/85
[2019-04-19] MEDS: IPRATROPIUM/ALBUTEROL 0.5-3(2.5)MG/3ML NEB HHN SCH ×4 (09:05→20:01)
[2019-04-19] MEDS: ASPIRIN 325MG EC TABLET PO SCH (09:18)
[2019-04-19] MEDS: GUAIFENESIN/DM 600MG/30MG ER TAB 12HR PO SCH ×2 (09:18→21:55)
[2019-04-19] MEDS: PREDNISONE 20MG TABLET PO SCH (09:18)
[2019-04-19] MEDS: ENOXAPARIN 40MG/0.4ML SYR SUBCUT SCH (09:20)
[2019-04-19 12:00] VITALS: BP 118/76
[2019-04-19 15:53] VITALS: BP 91/56
[2019-04-19 20:39] VITALS: BP 112/73
[2019-04-20 00:12] VITALS: BP 126/77
[2019-04-20] MEDS: IPRATROPIUM/ALBUTEROL 0.5-3(2.5)MG/3ML NEB HHN SCH ×6 (00:54→21:11)
[2019-04-20] MEDS: DILTIAZEM HCL 60MG TABLET PO SCH ×5 (01:28→21:56)
[2019-04-20 04:00] VITALS: BP 108/67
[2019-04-20 06:08] LABS: BASOPHILS % 0.1 % (0.0-2.0); EOSINOPHILS % 0.1 % (0.0-5.0); HEMATOCRIT. 45.8 % (42.0-52.0); HEMOGLOBIN. 15.2 g/dL (14.0-18.0); LYMPHOCYTES % 10.8 % (20.0-50.0); MEAN CORPUSCULAR VOLUME 93.2 fL (80.0-94.0); MEAN PLATELET VOLUME 9.7 fl (7.4-10.4); MONOCYTES % 11.4 % (2.0-8.0); NEUTROPHILS % 77.6 % (40.0-76.0); PLATELET 122 x1000/uL (130-400); RED BLOOD CELL COUNT 4.91 mill/uL (4.7-6.1); RED CELL DISTRIBUTION WIDTH 15.2 % (11.6-14.6)
[2019-04-20 08:43] VITALS: BP 106/66
[2019-04-20] MEDS: GUAIFENESIN 200MG/10ML SUGAR FREE UDC PO PRN (09:36)
[2019-04-20] MEDS: ASPIRIN 325MG EC TABLET PO SCH (09:36)
[2019-04-20] MEDS: PREDNISONE 20MG TABLET PO SCH (09:36)
[2019-04-20] MEDS: ENOXAPARIN 40MG/0.4ML SYR SUBCUT SCH (09:36)
[2019-04-20] MEDS: GUAIFENESIN/DM 600MG/30MG ER TAB 12HR PO SCH ×2 (09:52→21:55)
[2019-04-20 12:32] VITALS: BP 106/61
[2019-04-20 16:41] VITALS: BP 104/58
[2019-04-20 20:00] VITALS: BP 114/77
[2019-04-21 00:50] VITALS: BP 102/59
[2019-04-21] MEDS: IPRATROPIUM/ALBUTEROL 0.5-3(2.5)MG/3ML NEB HHN SCH ×6 (01:33→21:09)
[2019-04-21 04:00] VITALS: BP 117/79
[2019-04-21] MEDS: DILTIAZEM HCL 60MG TABLET PO SCH ×3 (06:20→17:14)
[2019-04-21 08:00] VITALS: BP 117/70
[2019-04-21] MEDS: ENOXAPARIN 40MG/0.4ML SYR SUBCUT SCH (08:51)
[2019-04-21] MEDS: ASPIRIN 325MG EC TABLET PO SCH (08:51)
[2019-04-21] MEDS: GUAIFENESIN/DM 600MG/30MG ER TAB 12HR PO SCH ×2 (08:51→21:42)
[2019-04-21] MEDS ORDERED: PREDNISONE 20MG TABLET PO SCH (09:00)
[2019-04-21 12:00] VITALS: BP 101/66
[2019-04-21 16:00] VITALS: BP 109/65
[2019-04-21 20:00] VITALS: BP 98/63
[2019-04-22 00:10] VITALS: BP 109/67
[2019-04-22] MEDS: IPRATROPIUM/ALBUTEROL 0.5-3(2.5)MG/3ML NEB HHN SCH ×2 (00:41→03:52)
[2019-04-22 04:00] VITALS: BP 121/79
[2019-04-22] MEDS: DILTIAZEM HCL 60MG TABLET PO SCH ×2 (06:31)
[2019-04-22 08:00] VITALS: BP 113/70
== END 2019-04-22 08:50 | disposition left against medical advice (07) | DRG 816 ==
LOC: ER 17:11 → 3WST 22:24 → EDBEDREQ 22:26 → EDBEDREQTM 22:26 → EDBEDREQ 22:54 → EDBEDREQSVC 22:54 → ENRESERV 23:11 → 6WST 04-12 06:20
PROVIDERS: ADMIT Internal Medicine; ATTEND Internal Medicine
PROC: 5A09357 Assistance with Respiratory Ventilation, Less than 24 Consecutive Hours, Continuous Positive Airway Pressure (ICD-10-PCS; principal; 2019-04-06)
PROC: 5A09357 Assistance with Respiratory Ventilation, Less than 24 Consecutive Hours, Continuous Positive Airway Pressure (ICD-10-PCS; 2019-04-08)
PROC: 5A09357 Assistance with Respiratory Ventilation, Less than 24 Consecutive Hours, Continuous Positive Airway Pressure (ICD-10-PCS; 2019-04-09)
PROC: 5A09357 Assistance with Respiratory Ventilation, Less than 24 Consecutive Hours, Continuous Positive Airway Pressure (ICD-10-PCS; 2019-04-12)
PROC: 5A09357 Assistance with Respiratory Ventilation, Less than 24 Consecutive Hours, Continuous Positive Airway Pressure (ICD-10-PCS; 2019-04-13)
PROC: 5A09357 Assistance with Respiratory Ventilation, Less than 24 Consecutive Hours, Continuous Positive Airway Pressure (ICD-10-PCS; 2019-04-14)
PROC: 5A09357 Assistance with Respiratory Ventilation, Less than 24 Consecutive Hours, Continuous Positive Airway Pressure (ICD-10-PCS; 2019-04-16)
DX: T40.5X1A Poisoning by cocaine, accidental (unintentional), initial encounter (principal); J96.01 Acute respiratory failure with hypoxia; E87.2 Acidosis; E44.0 Moderate protein-calorie malnutrition; J96.02 Acute respiratory failure with hypercapnia; E11.40 Type 2 diabetes mellitus with diabetic neuropathy, unspecified; R65.10 Systemic inflammatory response syndrome (SIRS) of non-infectious origin without acute organ dysfunction; J68.0 Bronchitis and pneumonitis due to chemicals, gases, fumes and vapors; F14.10 Cocaine abuse, uncomplicated; F16.10 Hallucinogen abuse, uncomplicated; Z53.29 Procedure and treatment not carried out because of patient's decision for other reasons; F17.210 Nicotine dependence, cigarettes, uncomplicated; Z91.14 Patient's other noncompliance with medication regimen; Z79.899 Other long term (current) drug therapy; Z59.0 Homelessness; Y92.89 Other specified places as the place of occurrence of the external cause; Z68.1 Body mass index [BMI] 19.9 or less, adult; Z71.51 Drug abuse counseling and surveillance of drug abuser
CPT/HCPCS: 36415; 36600; 71045; 71275; 78582; 80061; 80305; 80320; 82375; 82550; 82553; 82565; 82805; 83036; 83880; 84484; 93005; 93306; 93970; 94618; 94640; 94660; 96361; 96374; 97162; 97165; 99291; A9558; J0360; J1650; J1940; J1956; J2543; J2930; J3490; J7030; J7060; J7512; J7608; J7611; J7620; Q9967; G0480

== ENCOUNTER 2019-05-05 00:25 | Inpatient (IN) | payer MEDICAID ==
[2019-05-05] VITALS (9 sets, daily range): BP systolic 109–131; BP diastolic 63–93
[~2019-05-05] VITALS: Ht 182.9 cm; Wt 59.0 kg
[~2019-05-05 00:25] MED LIST changes: -AZIT500T5 MT; +AZIT500T8 MT
[2019-05-05] MEDS ORDERED: IPRATROPIUM/ALBUTEROL 0.5-3(2.5)MG/3ML NEB HHN ONE (01:15)
[2019-05-05] MEDS ORDERED: METHYLPREDNISOLONE SOD SUCC 125 MG/2 ML VIAL IV STA (01:15)
[2019-05-05] MEDS ORDERED: LEVOFLOXACIN 750MG PREMIX 150 ML IV ONE (01:15)
[2019-05-05] MEDS ORDERED: MAGNESIUM 2 G PREMIX 50 ML IV ONE (01:15)
[2019-05-05 02:04] LABS: BASOPHILS % 0.5 % (0.0-2.0); EOSINOPHILS % 0.5 % (0.0-5.0); HEMATOCRIT. 47.7 % (42.0-52.0); HEMOGLOBIN. 15.7 g/dL (14.0-18.0); LYMPHOCYTES % 9.6 % (20.0-50.0); MEAN CORPUSCULAR HEMOGLOBIN 30.9 pg (28.0-32.0); MONOCYTES % 9.3 % (2.0-8.0); NEUTROPHILS % 80.1 % (40.0-76.0); PLATELET 120 x1000/uL (130-400); RED BLOOD CELL COUNT 5.08 mill/uL (4.7-6.1); RED CELL DISTRIBUTION WIDTH 15.2 % (11.6-14.6)
[2019-05-05 02:09] LABS: INR 1.2; PARTIAL THROMBOPLASTIN TIME 26.5 sec (23.4-31.0); PROTHROMBIN TIME 12.4 sec (9.6-11.0)
[2019-05-05 02:11] LABS: CHLORIDE 104 mEq/L (98-107)
[2019-05-05 02:15] LABS: ETHANOL BLOOD < 10 mg/dL
[2019-05-05 02:21] LABS: *AMPHETAMINES SCREEN URINE NEGATIVE (NEGATIVE)
[2019-05-05 02:22] LABS: *BARBITURATES SCREEN URINE NEGATIVE (NEGATIVE); *BENZODIAZEPINES SCREEN URINE NEGATIVE (NEGATIVE); *COCAINE SCREEN URINE PRESUMTIVE POSITIVE (NEGATIVE); METHADONE URINE SCREEN NEGATIVE (NEGATIVE); OPIATES URINE SCREEN NEGATIVE (NEGATIVE); PHENCYCLIDINE URINE SCREEN PRESUMTIVE POSITIVE (NEGATIVE)
[2019-05-05 02:23] LABS: CANNABINOID URINE SCREEN NEGATIVE (NEGATIVE)
[2019-05-05 02:28] LABS: BG BASE EXCESS 6.6 mmol/L (-2.0-2.0); BG CARBOXYHEMOGLOBIN 3.5 % (0.5-1.5); BG DEOXYHEMOGLOBIN 10.2 % (0.0-5.0); BG FRACTION INSPIRED OXYGEN 28; BG HCO3 ACT 37.9 mmol/L (22.0-26.0); BG METHEMOGLOBIN 0.4 % (0.0-1.5); BG OXYGEN SATURATION 89.4 % (92.0-98.5); BG OXYHEMOGLOBIN 85.9 % (94.0-97.0); BG PCO2 87.1 mmHg (35.0-45.0); BG PH 7.256 (7.350-7.450); BG PO2 65.9 mmHg (75.0-100.0); BG SAMPLE SITE RIGHT BRACHIAL; BG TOTAL HEMOGLOBIN 16.5 g/dL (12.0-18.0); BG VENT MODE NASAL CANNULA
[2019-05-05 04:11] LABS: BG BASE EXCESS 6.2 mmol/L (-2.0-2.0); BG BILEVEL POS AIRWAY PRESSURE 15/5; BG CARBOXYHEMOGLOBIN 2.7 % (0.5-1.5); BG FRACTION INSPIRED OXYGEN 50; BG HCO3 ACT 36.5 mmol/L (22.0-26.0); BG METHEMOGLOBIN 0.3 % (0.0-1.5); BG PCO2 80.3 mmHg (35.0-45.0); BG PH 7.276 (7.350-7.450); BG PO2 194.5 mmHg (75.0-100.0); BG SAMPLE SITE RIGHT BRACHIAL; BG TOTAL HEMOGLOBIN 15.7 g/dL (12.0-18.0); BG VENT MODE MASK - BIPAP; BG VENT RATE 16 set
[2019-05-05] MEDS ORDERED: CLONIDINE 0.1MG TABLET PO PRN (07:30)
[2019-05-05] MEDS ORDERED: KETOROLAC 15MG/ML VIAL IV PRN (07:30)
[2019-05-05] MEDS ORDERED: NITROGLYCERIN 0.4MG TABLET SL SL PRN (07:30)
[2019-05-05] MEDS ORDERED: IPRATROPIUM/ALBUTEROL 0.5-3(2.5)MG/3ML NEB NEB PRN (07:30)
[2019-05-05] MEDS ORDERED: DOCUSATE SODIUM 100MG CAPSULE PO PRN (07:30)
[2019-05-05] MEDS ORDERED: ZOLPIDEM TARTRATE 5MG TABLET PO PRN (07:30)
[2019-05-05] MEDS ORDERED: LORAZEPAM 0.5MG TABLET PO PRN (07:30)
[2019-05-05] MEDS ORDERED: ONDANSETRON HCL 4MG/2ML INJ IV PRN (07:30)
[2019-05-05] MEDS ORDERED: MAGNESIUM/ALUMINUM HYDROXIDE/SIMETHICONE 30ML UDC PO PRN (07:30)
[2019-05-05 07:56] LABS: BG BASE EXCESS 4.9 mmol/L (-2.0-2.0); BG BILEVEL POS AIRWAY PRESSURE 15/5; BG CARBOXYHEMOGLOBIN 2.6 % (0.5-1.5); BG DEOXYHEMOGLOBIN 1.1 % (0.0-5.0); BG FRACTION INSPIRED OXYGEN 50; BG HCO3 ACT 33.9 mmol/L (22.0-26.0); BG METHEMOGLOBIN 0.4 % (0.0-1.5); BG OXYGEN SATURATION 98.9 % (92.0-98.5); BG OXYHEMOGLOBIN 95.9 % (94.0-97.0); BG PCO2 70.9 mmHg (35.0-45.0); BG PH 7.298 (7.350-7.450); BG PO2 159.4 mmHg (75.0-100.0); BG SAMPLE SITE RIGHT BRACHIAL; BG TOTAL HEMOGLOBIN 14.9 g/dL (12.0-18.0); BG VENT MODE MASK - BIPAP; BG VENT RATE 20 set
[2019-05-05] MEDS: IPRATROPIUM/ALBUTEROL 0.5-3(2.5)MG/3ML NEB HHN SCH ×4 (08:21→20:35)
[2019-05-05] MEDS: CEFEPIME 1,000 MG in DEXTROSE 5% WATER 50 ML IV SCH ×2 (11:17→22:16)
[2019-05-05] MEDS: GUAIFENESIN/DM 600MG/30MG ER TAB 12HR PO SCH ×2 (11:17→22:16)
[2019-05-05] MEDS: ASPIRIN 325MG EC TABLET PO SCH (11:17)
[2019-05-05] MEDS: METHYLPREDNISOLONE SOD SUCC 125 MG/2 ML VIAL IV SCH ×2 (13:37→22:16)
[2019-05-05] MEDS: ENOXAPARIN 40MG/0.4ML SYR SUBCUT SCH (13:38)
[2019-05-05] MEDS: DILTIAZEM HCL 60MG TABLET PO SCH ×2 (13:38→17:32)
[2019-05-05] MEDS ORDERED: INFLUENZA VIRUS VACCINE(AFLURIA) 0.5ML SYR IM ONE (14:00)
[2019-05-05] MEDS ORDERED: PNEUMOCOCCAL 23-VAL P-SAC VAC 0.5 ML IM ONE (14:00)
[2019-05-05 16:09] LABS: CREATINE KINASE 41 IU/L (39-308)
[2019-05-05 16:10] LABS: CREATINE KINASE MB FRACTION 1.7 ng/mL (0.5-3.6)
[2019-05-05 23:28] LABS: CREATINE KINASE 40 IU/L (39-308)
[2019-05-05 23:29] LABS: CREATINE KINASE MB FRACTION 1.7 ng/mL (0.5-3.6)
[2019-05-06] VITALS (11 sets, daily range): BP systolic 111–149; BP diastolic 62–92
[2019-05-06] MEDS: IPRATROPIUM/ALBUTEROL 0.5-3(2.5)MG/3ML NEB HHN SCH ×6 (00:36→21:01)
[2019-05-06] MEDS: DILTIAZEM HCL 60MG TABLET PO SCH ×4 (00:40→17:49)
[2019-05-06] MEDS: METHYLPREDNISOLONE SOD SUCC 125 MG/2 ML VIAL IV SCH ×3 (06:00→21:41)
[2019-05-06] MEDS: ASPIRIN 325MG EC TABLET PO SCH (09:14)
[2019-05-06] MEDS: GUAIFENESIN/DM 600MG/30MG ER TAB 12HR PO SCH ×2 (09:14→21:41)
[2019-05-06] MEDS: ENOXAPARIN 40MG/0.4ML SYR SUBCUT SCH (15:45)
[2019-05-06] MEDS: CEFEPIME 1,000 MG in DEXTROSE 5% WATER 50 ML IV SCH (15:54)
[2019-05-07] VITALS (12 sets, daily range): BP systolic 117–136; BP diastolic 63–80
[2019-05-07] MEDS: DILTIAZEM HCL 60MG TABLET PO SCH ×5 (00:05→23:26)
[2019-05-07] MEDS: IPRATROPIUM/ALBUTEROL 0.5-3(2.5)MG/3ML NEB HHN SCH ×5 (00:22→21:08)
[2019-05-07] MEDS: CEFEPIME 1,000 MG in DEXTROSE 5% WATER 50 ML IV SCH ×2 (03:14→16:50)
[2019-05-07] MEDS: METHYLPREDNISOLONE SOD SUCC 125 MG/2 ML VIAL IV SCH ×3 (05:45→21:02)
[2019-05-07 08:17] LABS: BG BASE EXCESS 10.5 mmol/L (-2.0-2.0); BG CARBOXYHEMOGLOBIN 0.9 % (0.5-1.5); BG DEOXYHEMOGLOBIN 10.9 % (0.0-5.0); BG FRACTION INSPIRED OXYGEN 21; BG HCO3 ACT 39.1 mmol/L (22.0-26.0); BG METHEMOGLOBIN 0.3 % (0.0-1.5); BG OXYHEMOGLOBIN 87.9 % (94.0-97.0); BG PH 7.359 (7.350-7.450); BG PO2 54.7 mmHg (75.0-100.0); BG SAMPLE SITE RIGHT RADIAL; BG TOTAL HEMOGLOBIN 14.6 g/dL (12.0-18.0); BG VENT MODE ROOM AIR
[2019-05-07] MEDS: GUAIFENESIN/DM 600MG/30MG ER TAB 12HR PO SCH ×2 (09:03→21:02)
[2019-05-07] MEDS: ASPIRIN 325MG EC TABLET PO SCH (09:03)
[2019-05-07] MEDS ORDERED: REGADENOSON 0.4 MG/5 ML IV ONE (10:21)
[2019-05-07] MEDS: ENOXAPARIN 40MG/0.4ML SYR SUBCUT SCH (12:28)
[2019-05-08] VITALS (12 sets, daily range): BP systolic 114–146; BP diastolic 64–97
[2019-05-08] MEDS: IPRATROPIUM/ALBUTEROL 0.5-3(2.5)MG/3ML NEB HHN SCH ×6 (01:44→20:30)
[2019-05-08] MEDS: CEFEPIME 1,000 MG in DEXTROSE 5% WATER 50 ML IV SCH ×2 (04:16→15:32)
[2019-05-08] MEDS: DILTIAZEM HCL 60MG TABLET PO SCH ×4 (05:24→23:31)
[2019-05-08] MEDS: METHYLPREDNISOLONE SOD SUCC 125 MG/2 ML VIAL IV SCH ×3 (05:24→23:29)
[2019-05-08] MEDS: ASPIRIN 325MG EC TABLET PO SCH (08:35)
[2019-05-08] MEDS: GUAIFENESIN 200MG/10ML SUGAR FREE UDC PO PRN (08:36)
[2019-05-08] MEDS: GUAIFENESIN/DM 600MG/30MG ER TAB 12HR PO SCH ×2 (08:36→23:30)
[2019-05-08 09:33] LABS: BG BASE EXCESS 13.1 mmol/L (-2.0-2.0); BG CARBOXYHEMOGLOBIN 0.7 % (0.5-1.5); BG DEOXYHEMOGLOBIN 5.4 % (0.0-5.0); BG FRACTION INSPIRED OXYGEN 32; BG HCO3 ACT 42.8 mmol/L (22.0-26.0); BG METHEMOGLOBIN 0.2 % (0.0-1.5); BG OXYGEN SATURATION 94.6 % (92.0-98.5); BG OXYHEMOGLOBIN 93.7 % (94.0-97.0); BG PCO2 80.8 mmHg (35.0-45.0); BG PH 7.342 (7.350-7.450); BG PO2 75.6 mmHg (75.0-100.0); BG SAMPLE SITE RIGHT BRACHIAL; BG TOTAL HEMOGLOBIN 14.3 g/dL (12.0-18.0); BG VENT MODE NASAL CANNULA
[2019-05-08 11:31] LABS: BG BASE EXCESS 14.9 mmol/L (-2.0-2.0); BG CARBOXYHEMOGLOBIN 0.5 % (0.5-1.5); BG DEOXYHEMOGLOBIN 18.7 % (0.0-5.0); BG FRACTION INSPIRED OXYGEN 21; BG HCO3 ACT 43.8 mmol/L (22.0-26.0); BG METHEMOGLOBIN 0.2 % (0.0-1.5); BG OXYGEN SATURATION 81.2 % (92.0-98.5); BG OXYHEMOGLOBIN 80.6 % (94.0-97.0); BG PCO2 74.2 mmHg (35.0-45.0); BG PH 7.389 (7.350-7.450); BG PO2 45.2 mmHg (75.0-100.0); BG SAMPLE SITE RIGHT BRACHIAL; BG TOTAL HEMOGLOBIN 14.6 g/dL (12.0-18.0); BG VENT MODE ROOM AIR
[2019-05-08] MEDS: ENOXAPARIN 40MG/0.4ML SYR SUBCUT SCH (12:00)
[2019-05-09] VITALS (12 sets, daily range): BP systolic 122–139; BP diastolic 62–77
[2019-05-09] MEDS: IPRATROPIUM/ALBUTEROL 0.5-3(2.5)MG/3ML NEB HHN SCH ×6 (00:03→20:28)
[2019-05-09] MEDS: CEFEPIME 1,000 MG in DEXTROSE 5% WATER 50 ML IV SCH ×2 (03:43→15:58)
[2019-05-09] MEDS: DILTIAZEM HCL 60MG TABLET PO SCH ×4 (06:04→23:11)
[2019-05-09] MEDS: METHYLPREDNISOLONE SOD SUCC 125 MG/2 ML VIAL IV SCH ×3 (06:05→23:10)
[2019-05-09] MEDS: ASPIRIN 325MG EC TABLET PO SCH (08:45)
[2019-05-09] MEDS: GUAIFENESIN 200MG/10ML SUGAR FREE UDC PO PRN (08:46)
[2019-05-09] MEDS: GUAIFENESIN/DM 600MG/30MG ER TAB 12HR PO SCH ×2 (08:46→23:10)
[2019-05-09] MEDS: ENOXAPARIN 40MG/0.4ML SYR SUBCUT SCH (12:16)
[2019-05-10] VITALS (12 sets, daily range): BP systolic 128–150; BP diastolic 74–90
[2019-05-10] MEDS: IPRATROPIUM/ALBUTEROL 0.5-3(2.5)MG/3ML NEB HHN SCH ×6 (00:49→21:22)
[2019-05-10] MEDS: CEFEPIME 1,000 MG in DEXTROSE 5% WATER 50 ML IV SCH ×2 (04:07→15:40)
[2019-05-10] MEDS: METHYLPREDNISOLONE SOD SUCC 125 MG/2 ML VIAL IV SCH ×3 (05:26→23:09)
[2019-05-10] MEDS: DILTIAZEM HCL 60MG TABLET PO SCH ×3 (05:26→18:00)
[2019-05-10] MEDS: ASPIRIN 325MG EC TABLET PO SCH (09:32)
[2019-05-10] MEDS: GUAIFENESIN/DM 600MG/30MG ER TAB 12HR PO SCH ×2 (09:38→23:07)
[2019-05-10] MEDS: ENOXAPARIN 40MG/0.4ML SYR SUBCUT SCH (15:39)
[2019-05-10] MEDS: GUAIFENESIN 200MG/10ML SUGAR FREE UDC PO PRN (15:41)
[2019-05-10] MEDS: ACETAMINOPHEN 325MG TABLET PO PRN (15:41)
[2019-05-11] VITALS (12 sets, daily range): BP systolic 122–158; BP diastolic 60–88
[2019-05-11] MEDS: IPRATROPIUM/ALBUTEROL 0.5-3(2.5)MG/3ML NEB HHN SCH ×7 (00:47→20:30)
[2019-05-11] MEDS: DILTIAZEM HCL 60MG TABLET PO SCH ×3 (01:21→11:32)
[2019-05-11] MEDS: CEFEPIME 1,000 MG in DEXTROSE 5% WATER 50 ML IV SCH ×2 (05:55→16:26)
[2019-05-11] MEDS: METHYLPREDNISOLONE SOD SUCC 125 MG/2 ML VIAL IV SCH ×3 (05:56→20:55)
[2019-05-11] MEDS: ASPIRIN 325MG EC TABLET PO SCH (10:48)
[2019-05-11] MEDS: GUAIFENESIN/DM 600MG/30MG ER TAB 12HR PO SCH ×2 (10:48→20:55)
[2019-05-11] MEDS: ENOXAPARIN 40MG/0.4ML SYR SUBCUT SCH (11:31)
[2019-05-12] VITALS (10 sets, daily range): BP systolic 128–146; BP diastolic 66–85
[2019-05-12] MEDS: IPRATROPIUM/ALBUTEROL 0.5-3(2.5)MG/3ML NEB HHN SCH ×6 (00:47→19:44)
[2019-05-12] MEDS: CEFEPIME 1,000 MG in DEXTROSE 5% WATER 50 ML IV SCH ×2 (03:14→16:38)
[2019-05-12] MEDS: METHYLPREDNISOLONE SOD SUCC 125 MG/2 ML VIAL IV SCH ×3 (05:56→21:23)
[2019-05-12] MEDS: DILTIAZEM HCL 60MG TABLET PO SCH ×5 (05:57→23:17)
[2019-05-12] MEDS: GUAIFENESIN/DM 600MG/30MG ER TAB 12HR PO SCH ×2 (08:48→21:29)
[2019-05-12] MEDS: ASPIRIN 325MG EC TABLET PO SCH (08:48)
[2019-05-12] MEDS: ENOXAPARIN 40MG/0.4ML SYR SUBCUT SCH (11:48)
[2019-05-13] VITALS (11 sets, daily range): BP systolic 127–151; BP diastolic 70–108
[2019-05-13] MEDS: IPRATROPIUM/ALBUTEROL 0.5-3(2.5)MG/3ML NEB HHN SCH ×7 (00:04→23:33)
[2019-05-13] MEDS: CEFEPIME 1,000 MG in DEXTROSE 5% WATER 50 ML IV SCH ×2 (04:57→16:16)
[2019-05-13] MEDS: METHYLPREDNISOLONE SOD SUCC 125 MG/2 ML VIAL IV SCH ×3 (06:39→21:21)
[2019-05-13] MEDS: DILTIAZEM HCL 60MG TABLET PO SCH ×4 (06:42→23:30)
[2019-05-13] MEDS: GUAIFENESIN/DM 600MG/30MG ER TAB 12HR PO SCH ×2 (09:53→21:21)
[2019-05-13] MEDS: ASPIRIN 325MG EC TABLET PO SCH (09:53)
[2019-05-13] MEDS: ENOXAPARIN 40MG/0.4ML SYR SUBCUT SCH (11:21)
[2019-05-14] VITALS (12 sets, daily range): BP systolic 128–154; BP diastolic 63–92
[2019-05-14] MEDS: CEFEPIME 1,000 MG in DEXTROSE 5% WATER 50 ML IV SCH ×2 (03:32→15:15)
[2019-05-14] MEDS: IPRATROPIUM/ALBUTEROL 0.5-3(2.5)MG/3ML NEB HHN SCH ×5 (04:25→21:02)
[2019-05-14] MEDS: METHYLPREDNISOLONE SOD SUCC 125 MG/2 ML VIAL IV SCH ×3 (05:26→21:24)
[2019-05-14] MEDS: DILTIAZEM HCL 60MG TABLET PO SCH ×4 (05:27→23:56)
[2019-05-14] MEDS: ASPIRIN 325MG EC TABLET PO SCH (09:36)
[2019-05-14] MEDS: GUAIFENESIN/DM 600MG/30MG ER TAB 12HR PO SCH ×2 (09:36→21:25)
[2019-05-14] MEDS ORDERED: IPRATROPIUM/ALBUTEROL 0.5-3(2.5)MG/3ML NEB NEB PRN (10:45)
[2019-05-14 11:04] LABS: BG BASE EXCESS 13.6 mmol/L (-2.0-2.0); BG CARBOXYHEMOGLOBIN 0.9 % (0.5-1.5); BG DEOXYHEMOGLOBIN 11.4 % (0.0-5.0); BG FRACTION INSPIRED OXYGEN 28; BG HCO3 ACT 44.1 mmol/L (22.0-26.0); BG METHEMOGLOBIN 0.3 % (0.0-1.5); BG OXYGEN SATURATION 88.5 % (92.0-98.5); BG OXYHEMOGLOBIN 87.4 % (94.0-97.0); BG PCO2 88.7 mmHg (35.0-45.0); BG PH 7.314 (7.350-7.450); BG SAMPLE SITE RIGHT BRACHIAL; BG TOTAL HEMOGLOBIN 13.9 g/dL (12.0-18.0); BG VENT MODE NASAL CANNULA
[2019-05-14] MEDS: ENOXAPARIN 40MG/0.4ML SYR SUBCUT SCH (11:54)
[2019-05-14 16:15] LABS: CHLORIDE 99 mEq/L (98-107)
[2019-05-14 16:20] LABS: HEMATOCRIT. 29.3 % (42.0-52.0); HEMOGLOBIN. 8.5 g/dL (14.0-18.0); MEAN CORPUSCULAR HEMOGLOBIN 30.6 pg (28.0-32.0); MEAN CORPUSCULAR VOLUME 106.1 fL (80.0-94.0); MEAN PLATELET VOLUME 9.3 fl (7.4-10.4); PLATELET 85 x1000/uL (130-400); RED BLOOD CELL COUNT 2.77 mill/uL (4.7-6.1)
[2019-05-14 16:57] LABS: PLATELET ESTIMATE DECREASED
[2019-05-15] VITALS (14 sets, daily range): BP systolic 131–156; BP diastolic 62–103
[2019-05-15] MEDS: IPRATROPIUM/ALBUTEROL 0.5-3(2.5)MG/3ML NEB HHN SCH ×5 (00:30→20:12)
[2019-05-15] MEDS: CEFEPIME 1,000 MG in DEXTROSE 5% WATER 50 ML IV SCH ×2 (04:35→16:03)
[2019-05-15] MEDS: METHYLPREDNISOLONE SOD SUCC 125 MG/2 ML VIAL IV SCH ×3 (05:28→21:08)
[2019-05-15] MEDS: DILTIAZEM HCL 60MG TABLET PO SCH ×3 (05:29→18:01)
[2019-05-15] MEDS: GUAIFENESIN/DM 600MG/30MG ER TAB 12HR PO SCH ×2 (08:22→21:08)
[2019-05-15] MEDS: ASPIRIN 325MG EC TABLET PO SCH (08:23)
[2019-05-15 10:13] LABS: BG BASE EXCESS 16.2 mmol/L (-2.0-2.0); BG BILEVEL POS AIRWAY PRESSURE 15/6; BG CARBOXYHEMOGLOBIN 0.5 % (0.5-1.5); BG DEOXYHEMOGLOBIN 3.3 % (0.0-5.0); BG FRACTION INSPIRED OXYGEN 40; BG HCO3 ACT 47.8 mmol/L (22.0-26.0); BG METHEMOGLOBIN 0.2 % (0.0-1.5); BG OXYGEN SATURATION 96.7 % (92.0-98.5); BG PCO2 98.6 mmHg (35.0-45.0); BG PH 7.303 (7.350-7.450); BG PO2 96.3 mmHg (75.0-100.0); BG SAMPLE SITE RIGHT RADIAL; BG TOTAL HEMOGLOBIN 14.2 g/dL (12.0-18.0); BG VENT MODE MASK - BIPAP
[2019-05-15] MEDS: ENOXAPARIN 40MG/0.4ML SYR SUBCUT SCH (12:00)
[2019-05-15 23:24] LABS: HEMATOCRIT. 42.3 % (42.0-52.0); HEMOGLOBIN. 13.8 g/dL (14.0-18.0); MEAN CORPUSCULAR HEMOGLOBIN 30.4 pg (28.0-32.0); MEAN PLATELET VOLUME 9.2 fl (7.4-10.4); PLATELET 142 x1000/uL (130-400); RED BLOOD CELL COUNT 4.52 mill/uL (4.7-6.1); RED CELL DISTRIBUTION WIDTH 14.9 % (11.6-14.6)
[2019-05-15 23:26] LABS: MEAN CORPUSCULAR VOLUME 93.6 fL (80.0-94.0)
[2019-05-16] VITALS (16 sets, daily range): BP systolic 122–164; BP diastolic 57–142
[2019-05-16] MEDS: IPRATROPIUM/ALBUTEROL 0.5-3(2.5)MG/3ML NEB HHN SCH ×6 (00:24→20:02)
[2019-05-16] MEDS: DILTIAZEM HCL 60MG TABLET PO SCH ×5 (00:53→23:55)
[2019-05-16] MEDS: CEFEPIME 1,000 MG in DEXTROSE 5% WATER 50 ML IV SCH ×2 (04:33→16:21)
[2019-05-16 04:47] LABS: PLATELET ESTIMATE NORMAL
[2019-05-16] MEDS: METHYLPREDNISOLONE SOD SUCC 125 MG/2 ML VIAL IV SCH ×3 (06:00→22:27)
[2019-05-16 09:03] LABS: BG BASE EXCESS 16.3 mmol/L (-2.0-2.0); BG BILEVEL POS AIRWAY PRESSURE 15/6; BG DEOXYHEMOGLOBIN 1.4 % (0.0-5.0); BG FRACTION INSPIRED OXYGEN 40; BG HCO3 ACT 45.7 mmol/L (22.0-26.0); BG METHEMOGLOBIN 0.3 % (0.0-1.5); BG OXYGEN SATURATION 98.6 % (92.0-98.5); BG OXYHEMOGLOBIN 97.3 % (94.0-97.0); BG PCO2 79.9 mmHg (35.0-45.0); BG PH 7.375 (7.350-7.450); BG PO2 132.5 mmHg (75.0-100.0); BG SAMPLE SITE RIGHT RADIAL; BG TOTAL HEMOGLOBIN 13.7 g/dL (12.0-18.0); BG VENT MODE MASK - BIPAP
[2019-05-16] MEDS: ASPIRIN 325MG EC TABLET PO SCH (10:23)
[2019-05-16] MEDS: GUAIFENESIN/DM 600MG/30MG ER TAB 12HR PO SCH ×2 (10:23→22:28)
[2019-05-16] MEDS: ENOXAPARIN 40MG/0.4ML SYR SUBCUT SCH (12:05)
[2019-05-17] VITALS (18 sets, daily range): BP systolic 132–163; BP diastolic 58–95
[2019-05-17] MEDS: IPRATROPIUM/ALBUTEROL 0.5-3(2.5)MG/3ML NEB HHN SCH ×6 (00:45→19:53)
[2019-05-17] MEDS: CEFEPIME 1,000 MG in DEXTROSE 5% WATER 50 ML IV SCH ×2 (04:25→18:30)
[2019-05-17] MEDS: METHYLPREDNISOLONE SOD SUCC 125 MG/2 ML VIAL IV SCH ×3 (06:43→21:12)
[2019-05-17] MEDS: DILTIAZEM HCL 60MG TABLET PO SCH ×3 (06:44→18:30)
[2019-05-17] MEDS: GUAIFENESIN/DM 600MG/30MG ER TAB 12HR PO SCH ×2 (09:25→21:12)
[2019-05-17] MEDS: ASPIRIN 325MG EC TABLET PO SCH (09:25)
[2019-05-17 09:48] LABS: BG CARBOXYHEMOGLOBIN 1.1 % (0.5-1.5); BG DEOXYHEMOGLOBIN 6.3 % (0.0-5.0); BG FRACTION INSPIRED OXYGEN 36; BG HCO3 ACT 43.1 mmol/L (22.0-26.0); BG METHEMOGLOBIN 0.2 % (0.0-1.5); BG OXYGEN SATURATION 93.6 % (92.0-98.5); BG OXYHEMOGLOBIN 92.4 % (94.0-97.0); BG PCO2 83.8 mmHg (35.0-45.0); BG PH 7.329 (7.350-7.450); BG PO2 73.4 mmHg (75.0-100.0); BG SAMPLE SITE RIGHT RADIAL; BG TOTAL HEMOGLOBIN 14.4 g/dL (12.0-18.0); BG VENT MODE NASAL CANNULA
[2019-05-17] MEDS: ENOXAPARIN 40MG/0.4ML SYR SUBCUT SCH (11:48)
[2019-05-18] VITALS (15 sets, daily range): BP systolic 86–153; BP diastolic 64–87
[2019-05-18] MEDS: IPRATROPIUM/ALBUTEROL 0.5-3(2.5)MG/3ML NEB HHN SCH ×6 (00:28→20:38)
[2019-05-18] MEDS: DILTIAZEM HCL 60MG TABLET PO SCH ×4 (00:42→17:57)
[2019-05-18] MEDS: CEFEPIME 1,000 MG in DEXTROSE 5% WATER 50 ML IV SCH ×2 (03:24→15:29)
[2019-05-18] MEDS: METHYLPREDNISOLONE SOD SUCC 125 MG/2 ML VIAL IV SCH ×2 (05:48→15:29)
[2019-05-18] MEDS: GUAIFENESIN/DM 600MG/30MG ER TAB 12HR PO SCH ×2 (08:46→21:47)
[2019-05-18] MEDS: ASPIRIN 325MG EC TABLET PO SCH (08:46)
[2019-05-18 09:53] LABS: BG BASE EXCESS 13.7 mmol/L (-2.0-2.0); BG CARBOXYHEMOGLOBIN 1.1 % (0.5-1.5); BG FRACTION INSPIRED OXYGEN 28; BG HCO3 ACT 43.5 mmol/L (22.0-26.0); BG METHEMOGLOBIN 0.2 % (0.0-1.5); BG OXYGEN SATURATION 86.8 % (92.0-98.5); BG OXYHEMOGLOBIN 85.7 % (94.0-97.0); BG PCO2 81.7 mmHg (35.0-45.0); BG PH 7.344 (7.350-7.450); BG PO2 54.1 mmHg (75.0-100.0); BG SAMPLE SITE RIGHT BRACHIAL; BG TOTAL HEMOGLOBIN 14.1 g/dL (12.0-18.0); BG VENT MODE NASAL CANNULA
[2019-05-18] MEDS: ENOXAPARIN 40MG/0.4ML SYR SUBCUT SCH (12:29)
[2019-05-18] MEDS ORDERED: TERBUTALINE SULFATE 1MG/ML VIAL SUBCUT NR (17:00)
[2019-05-18] MEDS: METHYLPREDNISOLONE SOD SUCC 40 MG/ML VIAL IV SCH (21:48)
[2019-05-19] VITALS (12 sets, daily range): BP systolic 128–157; BP diastolic 67–94
[2019-05-19] MEDS: IPRATROPIUM/ALBUTEROL 0.5-3(2.5)MG/3ML NEB HHN SCH ×6 (00:20→21:26)
[2019-05-19] MEDS: DILTIAZEM HCL 60MG TABLET PO SCH ×4 (00:47→17:57)
[2019-05-19] MEDS: CEFEPIME 1,000 MG in DEXTROSE 5% WATER 50 ML IV SCH ×2 (03:06→16:25)
[2019-05-19] MEDS: METHYLPREDNISOLONE SOD SUCC 40 MG/ML VIAL IV SCH (06:28)
[2019-05-19] MEDS: GUAIFENESIN/DM 600MG/30MG ER TAB 12HR PO SCH ×2 (09:31→22:43)
[2019-05-19] MEDS: ASPIRIN 325MG EC TABLET PO SCH (09:31)
[2019-05-19] MEDS: ENOXAPARIN 40MG/0.4ML SYR SUBCUT SCH (12:06)
[2019-05-19] MEDS: METHYLPREDNISOLONE SOD SUCC 125 MG/2 ML VIAL IV SCH ×2 (14:45→22:43)
[2019-05-20] VITALS (12 sets, daily range): BP systolic 129–151; BP diastolic 70–93
[2019-05-20] MEDS: IPRATROPIUM/ALBUTEROL 0.5-3(2.5)MG/3ML NEB HHN SCH ×6 (00:45→20:54)
[2019-05-20] MEDS: DILTIAZEM HCL 60MG TABLET PO SCH ×4 (01:07→18:13)
[2019-05-20] MEDS: CEFEPIME 1,000 MG in DEXTROSE 5% WATER 50 ML IV SCH ×2 (05:29→17:59)
[2019-05-20] MEDS: METHYLPREDNISOLONE SOD SUCC 125 MG/2 ML VIAL IV SCH ×3 (05:45→22:22)
[2019-05-20] MEDS: GUAIFENESIN/DM 600MG/30MG ER TAB 12HR PO SCH ×2 (09:00→22:22)
[2019-05-20] MEDS: ASPIRIN 325MG EC TABLET PO SCH (09:00)
[2019-05-20] MEDS: GUAIFENESIN 200MG/10ML SUGAR FREE UDC PO PRN (09:00)
[2019-05-20 13:31] LABS: HEMATOCRIT. 37.5 % (42.0-52.0); HEMOGLOBIN. 12.4 g/dL (14.0-18.0); MEAN CORPUSCULAR HEMOGLOBIN 30.8 pg (28.0-32.0); MEAN CORPUSCULAR VOLUME 93.1 fL (80.0-94.0); MEAN PLATELET VOLUME 8.9 fl (7.4-10.4); PLATELET 99 x1000/uL (130-400); RED BLOOD CELL COUNT 4.03 mill/uL (4.7-6.1); RED CELL DISTRIBUTION WIDTH 15.1 % (11.6-14.6)
[2019-05-20 13:45] LABS: CHLORIDE 94 mEq/L (98-107)
[2019-05-20] MEDS: ENOXAPARIN 40MG/0.4ML SYR SUBCUT SCH (13:54)
[2019-05-20 14:15] LABS: PLATELET ESTIMATE DECREASED
[2019-05-20] MEDS ORDERED: TERBUTALINE SULFATE 1MG/ML VIAL SUBCUT NR (14:45)
[2019-05-21] VITALS (12 sets, daily range): BP systolic 133–160; BP diastolic 69–96
[2019-05-21] MEDS: IPRATROPIUM/ALBUTEROL 0.5-3(2.5)MG/3ML NEB HHN SCH ×6 (00:31→21:25)
[2019-05-21] MEDS: DILTIAZEM HCL 60MG TABLET PO SCH ×4 (00:56→17:43)
[2019-05-21] MEDS: CEFEPIME 1,000 MG in DEXTROSE 5% WATER 50 ML IV SCH ×2 (04:52→15:25)
[2019-05-21] MEDS: METHYLPREDNISOLONE SOD SUCC 125 MG/2 ML VIAL IV SCH ×3 (05:02→22:19)
[2019-05-21] MEDS: ASPIRIN 325MG EC TABLET PO SCH (08:54)
[2019-05-21] MEDS: GUAIFENESIN/DM 600MG/30MG ER TAB 12HR PO SCH ×2 (08:54→22:19)
[2019-05-21] MEDS: ENOXAPARIN 40MG/0.4ML SYR SUBCUT SCH (12:12)
[2019-05-21 15:00] LABS: BG BASE EXCESS 18.1 mmol/L (-2.0-2.0); BG BILEVEL POS AIRWAY PRESSURE 15/5; BG CARBOXYHEMOGLOBIN 1.1 % (0.5-1.5); BG DEOXYHEMOGLOBIN 4.2 % (0.0-5.0); BG FRACTION INSPIRED OXYGEN 35; BG HCO3 ACT 49.5 mmol/L (22.0-26.0); BG METHEMOGLOBIN 0.2 % (0.0-1.5); BG OXYGEN SATURATION 95.7 % (92.0-98.5); BG OXYHEMOGLOBIN 94.5 % (94.0-97.0); BG PCO2 101.3 mmHg (35.0-45.0); BG PH 7.307 (7.350-7.450); BG PO2 87.4 mmHg (75.0-100.0); BG SAMPLE SITE RIGHT RADIAL; BG TOTAL HEMOGLOBIN 13.3 g/dL (12.0-18.0); BG VENT MODE MASK - BIPAP
[2019-05-21] MEDS ORDERED: TERBUTALINE SULFATE 1MG/ML VIAL SUBCUT SCH (15:30)
[2019-05-21] MEDS: THEOPHYLLINE ANHYDROUS 80 MG/15 ML 120ML PO SCH (22:20)
[2019-05-22] VITALS (12 sets, daily range): BP systolic 135–150; BP diastolic 74–95
[2019-05-22] MEDS: DILTIAZEM HCL 60MG TABLET PO SCH ×4 (00:13→18:16)
[2019-05-22] MEDS: IPRATROPIUM/ALBUTEROL 0.5-3(2.5)MG/3ML NEB HHN SCH ×6 (01:29→20:52)
[2019-05-22] MEDS: METHYLPREDNISOLONE SOD SUCC 125 MG/2 ML VIAL IV SCH ×3 (05:53→21:27)
[2019-05-22] MEDS: THEOPHYLLINE ANHYDROUS 80 MG/15 ML 120ML PO SCH ×3 (06:09→21:27)
[2019-05-22] MEDS: GUAIFENESIN/DM 600MG/30MG ER TAB 12HR PO SCH ×2 (09:56→21:27)
[2019-05-22] MEDS: ASPIRIN 325MG EC TABLET PO SCH (09:56)
[2019-05-22] MEDS: ENOXAPARIN 40MG/0.4ML SYR SUBCUT SCH (12:27)
[2019-05-22 13:21] LABS: BG BASE EXCESS 17.2 mmol/L (-2.0-2.0); BG DEOXYHEMOGLOBIN 4.1 % (0.0-5.0); BG FRACTION INSPIRED OXYGEN 36; BG HCO3 ACT 47.1 mmol/L (22.0-26.0); BG METHEMOGLOBIN 0.2 % (0.0-1.5); BG OXYGEN SATURATION 95.9 % (92.0-98.5); BG OXYHEMOGLOBIN 94.7 % (94.0-97.0); BG PCO2 87.5 mmHg (35.0-45.0); BG PH 7.349 (7.350-7.450); BG PO2 83.7 mmHg (75.0-100.0); BG SAMPLE SITE RIGHT RADIAL; BG VENT MODE NASAL CANNULA
[2019-05-23] VITALS (12 sets, daily range): BP systolic 134–161; BP diastolic 79–94
[2019-05-23] MEDS: IPRATROPIUM/ALBUTEROL 0.5-3(2.5)MG/3ML NEB HHN SCH ×6 (00:05→20:19)
[2019-05-23] MEDS: DILTIAZEM HCL 60MG TABLET PO SCH ×4 (00:23→17:37)
[2019-05-23] MEDS: THEOPHYLLINE ANHYDROUS 80 MG/15 ML 120ML PO SCH ×3 (05:39→21:38)
[2019-05-23] MEDS: METHYLPREDNISOLONE SOD SUCC 125 MG/2 ML VIAL IV SCH ×3 (05:39→21:38)
[2019-05-23] MEDS: ASPIRIN 325MG EC TABLET PO SCH (09:00)
[2019-05-23] MEDS: GUAIFENESIN/DM 600MG/30MG ER TAB 12HR PO SCH ×2 (09:36→21:38)
[2019-05-23] MEDS: ENOXAPARIN 40MG/0.4ML SYR SUBCUT SCH (11:57)
[2019-05-24] VITALS (12 sets, daily range): BP systolic 119–164; BP diastolic 78–99
[2019-05-24] MEDS: IPRATROPIUM/ALBUTEROL 0.5-3(2.5)MG/3ML NEB HHN SCH ×7 (00:18→23:30)
[2019-05-24] MEDS: DILTIAZEM HCL 60MG TABLET PO SCH ×4 (00:24→16:59)
[2019-05-24] MEDS: METHYLPREDNISOLONE SOD SUCC 125 MG/2 ML VIAL IV SCH ×2 (06:44→14:01)
[2019-05-24] MEDS: THEOPHYLLINE ANHYDROUS 80 MG/15 ML 120ML PO SCH ×3 (06:45→22:40)
[2019-05-24] MEDS: GUAIFENESIN/DM 600MG/30MG ER TAB 12HR PO SCH ×2 (08:50→22:40)
[2019-05-24] MEDS: ASPIRIN 325MG EC TABLET PO SCH (08:50)
[2019-05-24] MEDS: ENOXAPARIN 40MG/0.4ML SYR SUBCUT SCH (12:37)
[2019-05-24] MEDS: METHYLPREDNISOLONE SOD SUCC 40 MG/ML VIAL IV SCH (16:14)
[2019-05-25] VITALS (12 sets, daily range): BP systolic 137–155; BP diastolic 69–108
[2019-05-25] MEDS: DILTIAZEM HCL 60MG TABLET PO SCH ×4 (00:42→17:02)
[2019-05-25] MEDS: IPRATROPIUM/ALBUTEROL 0.5-3(2.5)MG/3ML NEB HHN SCH ×4 (04:56→21:04)
[2019-05-25] MEDS: THEOPHYLLINE ANHYDROUS 80 MG/15 ML 120ML PO SCH ×3 (06:34→21:44)
[2019-05-25] MEDS: GUAIFENESIN/DM 600MG/30MG ER TAB 12HR PO SCH ×2 (09:05→21:45)
[2019-05-25] MEDS: ASPIRIN 325MG EC TABLET PO SCH (09:05)
[2019-05-25] MEDS: METHYLPREDNISOLONE SOD SUCC 40 MG/ML VIAL IV SCH ×2 (09:05→17:00)
[2019-05-25] MEDS ORDERED: TERBUTALINE SULFATE 1MG/ML VIAL SUBCUT NR (13:00)
[2019-05-25] MEDS: ENOXAPARIN 40MG/0.4ML SYR SUBCUT SCH (13:19)
[2019-05-26] VITALS (10 sets, daily range): BP systolic 141–169; BP diastolic 80–100
[2019-05-26] MEDS: DILTIAZEM HCL 60MG TABLET PO SCH ×4 (00:40→17:46)
[2019-05-26] MEDS: IPRATROPIUM/ALBUTEROL 0.5-3(2.5)MG/3ML NEB HHN SCH ×7 (01:00→23:41)
[2019-05-26] MEDS: THEOPHYLLINE ANHYDROUS 80 MG/15 ML 120ML PO SCH ×3 (06:37→21:52)
[2019-05-26] MEDS: ASPIRIN 325MG EC TABLET PO SCH (09:13)
[2019-05-26] MEDS: METHYLPREDNISOLONE SOD SUCC 40 MG/ML VIAL IV SCH (09:13)
[2019-05-26] MEDS: GUAIFENESIN/DM 600MG/30MG ER TAB 12HR PO SCH ×2 (09:13→21:52)
[2019-05-26] MEDS: ENOXAPARIN 40MG/0.4ML SYR SUBCUT SCH (13:35)
[2019-05-27] VITALS (10 sets, daily range): BP systolic 104–151; BP diastolic 69–98
[2019-05-27] MEDS: IPRATROPIUM/ALBUTEROL 0.5-3(2.5)MG/3ML NEB HHN SCH ×5 (04:17→20:19)
[2019-05-27] MEDS: DILTIAZEM HCL 60MG TABLET PO SCH ×5 (06:35→23:28)
[2019-05-27] MEDS: THEOPHYLLINE ANHYDROUS 80 MG/15 ML 120ML PO SCH ×3 (06:36→22:28)
[2019-05-27] MEDS: PREDNISONE 20MG TABLET PO SCH (09:25)
[2019-05-27] MEDS: ASPIRIN 325MG EC TABLET PO SCH (09:25)
[2019-05-27] MEDS: GUAIFENESIN/DM 600MG/30MG ER TAB 12HR PO SCH ×2 (09:27→22:28)
[2019-05-27] MEDS: ENOXAPARIN 40MG/0.4ML SYR SUBCUT SCH (11:38)
[2019-05-28] VITALS (15 sets, daily range): BP systolic 92–136; BP diastolic 68–82
[2019-05-28] MEDS: IPRATROPIUM/ALBUTEROL 0.5-3(2.5)MG/3ML NEB HHN SCH ×6 (00:08→20:14)
[2019-05-28] MEDS: DILTIAZEM HCL 60MG TABLET PO SCH ×4 (05:56→23:43)
[2019-05-28] MEDS: THEOPHYLLINE ANHYDROUS 80 MG/15 ML 120ML PO SCH ×3 (05:58→21:27)
[2019-05-28] MEDS: ASPIRIN 325MG EC TABLET PO SCH ×2 (08:29→09:00)
[2019-05-28] MEDS: PREDNISONE 20MG TABLET PO SCH ×2 (08:29→09:00)
[2019-05-28] MEDS: GUAIFENESIN/DM 600MG/30MG ER TAB 12HR PO SCH ×2 (10:00→21:27)
[2019-05-28] MEDS: ENOXAPARIN 40MG/0.4ML SYR SUBCUT SCH (12:00)
[2019-05-28] MEDS: ACETAMINOPHEN 325MG TABLET PO PRN ×2 (17:18→21:04)
[2019-05-29] VITALS (11 sets, daily range): BP systolic 110–142; BP diastolic 76–89
[2019-05-29] MEDS: ACETAMINOPHEN 325MG TABLET PO PRN ×5 (02:58→21:27)
[2019-05-29] MEDS: IPRATROPIUM/ALBUTEROL 0.5-3(2.5)MG/3ML NEB HHN SCH ×5 (03:40→23:50)
[2019-05-29] MEDS: DILTIAZEM HCL 60MG TABLET PO SCH ×5 (05:09→23:33)
[2019-05-29] MEDS: THEOPHYLLINE ANHYDROUS 80 MG/15 ML 120ML PO SCH ×4 (05:10→21:25)
[2019-05-29 08:01] LABS: HEMATOCRIT 29.5 % (42.0-52.0); HEMOGLOBIN 9.8 g/dL (14.0-18.0); MEAN CORPUSCULAR HEMOGLOBIN 30.6 pg (28.0-32.0); MEAN CORPUSCULAR VOLUME 92.4 fL (80.0-94.0); RED BLOOD CELL COUNT 3.19 mill/uL (4.7-6.1); RED CELL DISTRIBUTION WIDTH 14.6 % (11.6-14.6)
[2019-05-29 08:07] LABS: CHLORIDE 97 mEq/L (98-107)
[2019-05-29 08:11] LABS: PLATELET 42 x1000/uL (130-400)
[2019-05-29] MEDS: PREDNISONE 20MG TABLET PO SCH (08:39)
[2019-05-29] MEDS: ASPIRIN 325MG EC TABLET PO SCH (08:39)
[2019-05-29] MEDS: GUAIFENESIN/DM 600MG/30MG ER TAB 12HR PO SCH ×2 (10:00→21:24)
[2019-05-29] MEDS: GUAIFENESIN 200MG/10ML SUGAR FREE UDC PO PRN (21:21)
[2019-05-30] VITALS (10 sets, daily range): BP systolic 91–136; BP diastolic 53–83
[2019-05-30] MEDS: THEOPHYLLINE ANHYDROUS 80 MG/15 ML 120ML PO SCH ×3 (05:59→21:32)
[2019-05-30] MEDS: DILTIAZEM HCL 60MG TABLET PO SCH ×3 (05:59→18:00)
[2019-05-30] MEDS: IPRATROPIUM/ALBUTEROL 0.5-3(2.5)MG/3ML NEB HHN SCH ×4 (08:50→21:00)
[2019-05-30] MEDS: PREDNISONE 20MG TABLET PO SCH (09:00)
[2019-05-30] MEDS: ASPIRIN 325MG EC TABLET PO SCH (09:00)
[2019-05-30] MEDS: ACETAMINOPHEN 325MG TABLET PO PRN ×2 (09:38→16:54)
[2019-05-30] MEDS: GUAIFENESIN/DM 600MG/30MG ER TAB 12HR PO SCH ×2 (09:39→21:32)
[2019-05-30 11:37] LABS: CHLORIDE 98 mEq/L (98-107)
[2019-05-31] VITALS (12 sets, daily range): BP systolic 108–152; BP diastolic 64–90
[2019-05-31] MEDS: IPRATROPIUM/ALBUTEROL 0.5-3(2.5)MG/3ML NEB HHN SCH ×6 (01:15→20:28)
[2019-05-31] MEDS: DILTIAZEM HCL 60MG TABLET PO SCH ×4 (05:54→18:00)
[2019-05-31] MEDS: THEOPHYLLINE ANHYDROUS 80 MG/15 ML 120ML PO SCH ×3 (05:55→21:41)
[2019-05-31] MEDS: ACETAMINOPHEN 325MG TABLET PO PRN ×2 (06:43→17:27)
[2019-05-31] MEDS: GUAIFENESIN/DM 600MG/30MG ER TAB 12HR PO SCH ×2 (08:39→21:41)
[2019-05-31] MEDS: ASPIRIN 325MG EC TABLET PO SCH (08:39)
[2019-05-31] MEDS: PREDNISONE 20MG TABLET PO SCH (08:39)
[2019-06-01] VITALS (8 sets, daily range): BP systolic 102–148; BP diastolic 63–87
[2019-06-01] MEDS: IPRATROPIUM/ALBUTEROL 0.5-3(2.5)MG/3ML NEB HHN SCH ×7 (00:37→23:30)
[2019-06-01] MEDS: ACETAMINOPHEN 325MG TABLET PO PRN ×3 (04:38→22:56)
[2019-06-01] MEDS: DILTIAZEM HCL 60MG TABLET PO SCH ×4 (06:00→18:00)
[2019-06-01] MEDS: THEOPHYLLINE ANHYDROUS 80 MG/15 ML 120ML PO SCH ×3 (06:00→21:08)
[2019-06-01] MEDS: ASPIRIN 325MG EC TABLET PO SCH ×2 (08:54→09:00)
[2019-06-01] MEDS: PREDNISONE 20MG TABLET PO SCH ×2 (08:55→09:00)
[2019-06-01] MEDS: GUAIFENESIN/DM 600MG/30MG ER TAB 12HR PO SCH ×2 (09:06→21:08)
[2019-06-02] MEDS: IPRATROPIUM/ALBUTEROL 0.5-3(2.5)MG/3ML NEB HHN SCH ×2 (07:20→21:53)
[2019-06-02 08:00] VITALS: BP 112/57
[2019-06-02] MEDS: ASPIRIN 325MG EC TABLET PO SCH (09:00)
[2019-06-02] MEDS: PREDNISONE 20MG TABLET PO SCH (09:00)
[2019-06-02] MEDS: GUAIFENESIN/DM 600MG/30MG ER TAB 12HR PO SCH (09:02)
[2019-06-02 10:10] VITALS: BP 108/66
[2019-06-02] MEDS: DILTIAZEM HCL 60MG TABLET PO SCH ×2 (11:48)
[2019-06-02 12:03] VITALS: BP 113/68
[2019-06-02] MEDS: THEOPHYLLINE ANHYDROUS 80 MG/15 ML 120ML PO SCH ×2 (14:00→22:49)
[2019-06-02] MEDS: IPRATROPIUM/ALBUTEROL 0.5-3(2.5)MG/3ML NEB HHN PRN (15:53)
[2019-06-02 16:00] VITALS: BP 97/68
[2019-06-02 20:00] VITALS: BP 102/61
[2019-06-02] MEDS: ACETAMINOPHEN 325MG TABLET PO PRN (22:07)
[2019-06-03] VITALS: BP 136/83
[2019-06-03] MEDS: IPRATROPIUM/ALBUTEROL 0.5-3(2.5)MG/3ML NEB HHN SCH ×4 (01:03→22:12)
[2019-06-03 04:00] VITALS: BP 117/57
[2019-06-03] MEDS: THEOPHYLLINE ANHYDROUS 80 MG/15 ML 120ML PO SCH ×3 (06:00→21:17)
[2019-06-03 08:00] VITALS: BP 103/65
[2019-06-03] MEDS: PREDNISONE 20MG TABLET PO SCH (08:26)
[2019-06-03 12:00] VITALS: BP 102/68
[2019-06-03] MEDS: ACETAMINOPHEN 325MG TABLET PO PRN (14:53)
[2019-06-03 16:00] VITALS: BP 104/50
[2019-06-03 20:00] VITALS: BP 91/54
[2019-06-04] VITALS: BP 94/54
[2019-06-04] MEDS: IPRATROPIUM/ALBUTEROL 0.5-3(2.5)MG/3ML NEB HHN SCH ×4 (02:30→22:10)
[2019-06-04 04:00] VITALS: BP 98/59
[2019-06-04] MEDS: THEOPHYLLINE ANHYDROUS 80 MG/15 ML 120ML PO SCH ×3 (06:00→21:32)
[2019-06-04 08:00] VITALS: BP 104/68
[2019-06-04] MEDS: PREDNISONE 20MG TABLET PO SCH ×3 (08:41→08:43)
[2019-06-04 12:00] VITALS: BP 102/72
[2019-06-04 16:00] VITALS: BP 96/56
[2019-06-04 20:00] VITALS: BP 95/57
[2019-06-04] MEDS: ACETAMINOPHEN 325MG TABLET PO PRN (21:36)
[2019-06-05] VITALS: BP 108/67
[2019-06-05] MEDS: IPRATROPIUM/ALBUTEROL 0.5-3(2.5)MG/3ML NEB HHN SCH ×4 (02:35→21:19)
[2019-06-05 04:00] VITALS: BP 100/61
[2019-06-05] MEDS: THEOPHYLLINE ANHYDROUS 80 MG/15 ML 120ML PO SCH ×3 (06:00→21:56)
[2019-06-05 08:00] VITALS: BP 99/63
[2019-06-05 12:00] VITALS: BP 93/56
[2019-06-05] MEDS ORDERED: PREDNISONE 20MG TABLET PO NR (14:30)
[2019-06-05 16:00] VITALS: BP 92/65
[2019-06-05 20:00] VITALS: BP 93/57
[2019-06-05] MEDS: BUDESONIDE 0.5MG/2ML NEB HHN SCH (21:18)
[2019-06-06] VITALS: BP 103/62
[2019-06-06] MEDS: IPRATROPIUM/ALBUTEROL 0.5-3(2.5)MG/3ML NEB HHN SCH ×4 (03:15→20:00)
[2019-06-06 04:00] VITALS: BP 97/64
[2019-06-06] MEDS: THEOPHYLLINE ANHYDROUS 80 MG/15 ML 120ML PO SCH ×3 (06:00→21:29)
[2019-06-06 08:00] VITALS: BP 100/57
[2019-06-06] MEDS: BUDESONIDE 0.5MG/2ML NEB HHN SCH ×2 (09:15→12:50)
[2019-06-06 12:00] VITALS: BP_SYST 102; BP_SYST 108; BP_DIAS 60; BP_DIAS 67
[2019-06-06 16:00] VITALS: BP_SYST 97; BP_SYST 98; BP_DIAS 56; BP_DIAS 62
[2019-06-06] MEDS: ACETAMINOPHEN 325MG TABLET PO PRN (21:11)
[2019-06-07] MEDS: THEOPHYLLINE ANHYDROUS 80 MG/15 ML 120ML PO SCH ×3 (06:00→22:00)
[2019-06-07 08:00] VITALS: BP 118/70
[2019-06-07] MEDS: IPRATROPIUM/ALBUTEROL 0.5-3(2.5)MG/3ML NEB HHN SCH ×4 (09:15→21:30)
[2019-06-07 12:00] VITALS: BP_SYST 105; BP_SYST 121; BP_DIAS 63; BP_DIAS 64
[2019-06-07 16:00] VITALS: BP_SYST 114; BP_SYST 122; BP_DIAS 61; BP_DIAS 66
[2019-06-07] MEDS: BUDESONIDE 0.5MG/2ML NEB HHN SCH ×2 (17:35→21:30)
[2019-06-07 20:00] VITALS: BP 106/60
[2019-06-08] VITALS: BP 110/64
[2019-06-08 04:00] VITALS: BP 110/65
[2019-06-08] MEDS: THEOPHYLLINE ANHYDROUS 80 MG/15 ML 120ML PO SCH ×3 (06:00→20:15)
[2019-06-08] MEDS: IPRATROPIUM/ALBUTEROL 0.5-3(2.5)MG/3ML NEB HHN SCH ×4 (07:38→21:28)
[2019-06-08] MEDS: BUDESONIDE 0.5MG/2ML NEB HHN SCH (07:38)
[2019-06-08 12:00] VITALS: BP 98/62
[2019-06-08 16:00] VITALS: BP 127/67
[2019-06-08 20:00] VITALS: BP 100/62
[2019-06-09] VITALS: BP 113/68
[2019-06-09] MEDS: IPRATROPIUM/ALBUTEROL 0.5-3(2.5)MG/3ML NEB HHN SCH ×4 (01:50→22:15)
[2019-06-09 04:00] VITALS: BP 118/71
[2019-06-09] MEDS: THEOPHYLLINE ANHYDROUS 80 MG/15 ML 120ML PO SCH ×3 (06:00→21:43)
[2019-06-09 08:00] VITALS: BP 104/57
[2019-06-09 12:00] VITALS: BP 105/64
[2019-06-09 20:00] VITALS: BP 120/74
[2019-06-10] VITALS (11 sets, daily range): BP systolic 102–119; BP diastolic 56–78
[2019-06-10] MEDS: IPRATROPIUM/ALBUTEROL 0.5-3(2.5)MG/3ML NEB HHN SCH (02:09)
[2019-06-10] MEDS ORDERED: SODIUM CHLORIDE 0.9% 500 ML IV ONE (04:00)
[2019-06-10] MEDS: THEOPHYLLINE ANHYDROUS 80 MG/15 ML 120ML PO SCH ×3 (05:50→21:31)
[2019-06-10] MEDS: SODIUM CHLORIDE 0.9% 1,000 ML IV SCH ×2 (06:09→21:25)
[2019-06-10 10:07] LABS: BASOPHILS % 0.8 % (0.0-2.0); HEMATOCRIT. 28.6 % (42.0-52.0); HEMOGLOBIN. 9.4 g/dL (14.0-18.0); LYMPHOCYTES % 35.4 % (20.0-50.0); MEAN CORPUSCULAR HEMOGLOBIN 29.9 pg (28.0-32.0); MEAN CORPUSCULAR VOLUME 91.4 fL (80.0-94.0); MEAN PLATELET VOLUME 7.6 fl (7.4-10.4); MONOCYTES % 14.6 % (2.0-8.0); NEUTROPHILS % 47.2 % (40.0-76.0); PLATELET 397 x1000/uL (130-400); RED BLOOD CELL COUNT 3.13 mill/uL (4.7-6.1); RED CELL DISTRIBUTION WIDTH 14.7 % (11.6-14.6)
[2019-06-10 10:20] LABS: CHLORIDE 95 mEq/L (98-107)
[2019-06-10] MEDS: IPRATROPIUM BROMIDE (0.02%) 0.5MG/2.5ML NEB HHN SCH (21:24)
[2019-06-10] MEDS: BUDESONIDE 0.5MG/2ML NEB HHN SCH (21:24)
[2019-06-11] VITALS (11 sets, daily range): BP systolic 109–125; BP diastolic 67–78
[2019-06-11] MEDS: IPRATROPIUM BROMIDE (0.02%) 0.5MG/2.5ML NEB HHN SCH ×4 (01:10→20:44)
[2019-06-11] MEDS: THEOPHYLLINE ANHYDROUS 80 MG/15 ML 120ML PO SCH ×2 (05:56→21:04)
[2019-06-11] MEDS: SODIUM CHLORIDE 0.9% 1,000 ML IV SCH ×2 (09:00→21:11)
[2019-06-11] MEDS: BUDESONIDE 0.5MG/2ML NEB HHN SCH ×2 (09:25→20:45)
[2019-06-12] VITALS (12 sets, daily range): BP systolic 107–146; BP diastolic 42–81
[2019-06-12] MEDS: BUDESONIDE 0.5MG/2ML NEB HHN SCH ×3 (02:00→21:00)
[2019-06-12] MEDS: IPRATROPIUM BROMIDE (0.02%) 0.5MG/2.5ML NEB HHN SCH ×4 (02:00→13:41)
[2019-06-12] MEDS: THEOPHYLLINE ANHYDROUS 80 MG/15 ML 120ML PO SCH ×2 (05:11→13:38)
[2019-06-12] MEDS: SODIUM CHLORIDE 0.9% 1,000 ML IV SCH ×2 (09:47→21:21)
[2019-06-12] MEDS: IPRATROPIUM/ALBUTEROL 0.5-3(2.5)MG/3ML NEB HHN SCH (21:00)
[2019-06-13] VITALS (7 sets, daily range): BP systolic 99–152; BP diastolic 49–82
[2019-06-13] MEDS: ACETAMINOPHEN 325MG TABLET PO PRN (08:49)
[2019-06-13] MEDS: SODIUM CHLORIDE 0.9% 1,000 ML IV SCH ×2 (12:01→23:06)
[2019-06-13] MEDS: BUDESONIDE 0.5MG/2ML NEB HHN SCH (15:44)
[2019-06-13] MEDS: IPRATROPIUM/ALBUTEROL 0.5-3(2.5)MG/3ML NEB HHN SCH ×2 (15:44→20:46)
[2019-06-14] MEDS: IPRATROPIUM/ALBUTEROL 0.5-3(2.5)MG/3ML NEB HHN SCH ×4 (02:00→21:50)
[2019-06-14 08:00] VITALS: BP 132/67
[2019-06-14 12:00] VITALS: BP 143/76
[2019-06-14] MEDS: SODIUM CHLORIDE 0.9% 1,000 ML IV SCH (13:58)
[2019-06-14 16:00] VITALS: BP 121/62
[2019-06-14 20:09] VITALS: BP 123/63
[2019-06-15 00:09] VITALS: BP 161/87
[2019-06-15] MEDS: IPRATROPIUM/ALBUTEROL 0.5-3(2.5)MG/3ML NEB HHN SCH ×4 (02:35→21:26)
[2019-06-15 04:09] VITALS: BP 142/85
[2019-06-15 08:00] VITALS: BP 145/89
[2019-06-15 12:00] VITALS: BP 146/75
[2019-06-15 16:00] VITALS: BP 144/76
[2019-06-15 20:00] VITALS: BP 132/74
[2019-06-16] VITALS (9 sets, daily range): BP systolic 122–155; BP diastolic 69–121
[2019-06-16] MEDS: IPRATROPIUM/ALBUTEROL 0.5-3(2.5)MG/3ML NEB HHN SCH ×4 (01:01→21:03)
[2019-06-17] VITALS (9 sets, daily range): BP systolic 110–138; BP diastolic 64–98
[2019-06-17] MEDS: IPRATROPIUM/ALBUTEROL 0.5-3(2.5)MG/3ML NEB HHN SCH ×4 (03:11→22:10)
[2019-06-17] MEDS: ACETAMINOPHEN 325MG TABLET PO PRN ×2 (05:57→16:33)
[2019-06-18] VITALS (9 sets, daily range): BP systolic 102–168; BP diastolic 67–87
[2019-06-18] MEDS: IPRATROPIUM/ALBUTEROL 0.5-3(2.5)MG/3ML NEB HHN SCH ×3 (01:50→22:51)
[2019-06-18] MEDS: ACETAMINOPHEN 325MG TABLET PO PRN (20:48)
[2019-06-19] VITALS (9 sets, daily range): BP systolic 98–148; BP diastolic 55–81
[2019-06-19] MEDS: IPRATROPIUM/ALBUTEROL 0.5-3(2.5)MG/3ML NEB HHN SCH ×3 (09:04→21:31)
[2019-06-20] VITALS (7 sets, daily range): BP systolic 105–127; BP diastolic 59–77
[2019-06-20] MEDS: IPRATROPIUM/ALBUTEROL 0.5-3(2.5)MG/3ML NEB HHN SCH ×4 (01:57→20:54)
[2019-06-21] VITALS: BP 112/68
[2019-06-21] MEDS: ACETAMINOPHEN 325MG TABLET PO PRN (03:47)
[2019-06-21 04:00] VITALS: BP 110/62
[2019-06-21] MEDS: IPRATROPIUM/ALBUTEROL 0.5-3(2.5)MG/3ML NEB HHN SCH ×3 (08:50→19:55)
[2019-06-21 12:00] VITALS: BP 109/74
[2019-06-21 16:00] VITALS: BP 114/74
[2019-06-21 20:00] VITALS: BP 91/55
[2019-06-22] VITALS: BP 98/63
[2019-06-22] MEDS: IPRATROPIUM/ALBUTEROL 0.5-3(2.5)MG/3ML NEB HHN SCH ×6 (02:25→21:26)
[2019-06-22 04:00] VITALS: BP 99/63
[2019-06-22 08:00] VITALS: BP 98/60
[2019-06-22] MEDS: ACETAMINOPHEN 325MG TABLET PO PRN (09:49)
[2019-06-22 16:00] VITALS: BP 100/66
[2019-06-22 20:00] VITALS: BP 97/61
[2019-06-23] VITALS: BP 94/61
[2019-06-23] MEDS: IPRATROPIUM/ALBUTEROL 0.5-3(2.5)MG/3ML NEB HHN SCH ×2 (02:25→21:16)
[2019-06-23 04:00] VITALS: BP 146/80
[2019-06-23] MEDS: IPRATROPIUM/ALBUTEROL 0.5-3(2.5)MG/3ML NEB HHN PRN ×2 (07:48→14:23)
[2019-06-23 08:00] VITALS: BP 106/65
[2019-06-23 12:00] VITALS: BP 103/57
[2019-06-23 16:00] VITALS: BP 90/50
[2019-06-23 20:00] VITALS: BP 94/28
[2019-06-24] VITALS: BP 104/61
[2019-06-24] MEDS: IPRATROPIUM/ALBUTEROL 0.5-3(2.5)MG/3ML NEB HHN SCH ×4 (02:00→19:55)
[2019-06-24 04:00] VITALS: BP 98/71
[2019-06-24 08:00] VITALS: BP 123/76
[2019-06-24 20:00] VITALS: BP 106/61
[2019-06-25] VITALS: BP 95/59
[2019-06-25 08:00] VITALS: BP 89/60
[2019-06-25] MEDS: IPRATROPIUM/ALBUTEROL 0.5-3(2.5)MG/3ML NEB HHN SCH ×3 (09:02→20:15)
[2019-06-25 12:00] VITALS: BP 94/54
[2019-06-25 16:00] VITALS: BP 92/63
[2019-06-25 20:00] VITALS: BP 106/67
[2019-06-26] VITALS: BP 107/71
[2019-06-26] MEDS: IPRATROPIUM/ALBUTEROL 0.5-3(2.5)MG/3ML NEB HHN SCH ×3 (02:05→20:50)
[2019-06-26 04:00] VITALS: BP 108/51
[2019-06-26 08:00] VITALS: BP 100/65
[2019-06-26 12:00] VITALS: BP 93/60
[2019-06-26 16:00] VITALS: BP 94/61
[2019-06-26 20:00] VITALS: BP 103/61
[2019-06-26] MEDS ORDERED: TRAMADOL 50MG TABLET PO PRN (20:00)
[2019-06-27] VITALS: BP 105/68
[2019-06-27] MEDS: IPRATROPIUM/ALBUTEROL 0.5-3(2.5)MG/3ML NEB HHN SCH ×4 (00:55→20:46)
[2019-06-27 04:00] VITALS: BP 112/69
[2019-06-27 08:00] VITALS: BP 112/74
[2019-06-27 12:00] VITALS: BP 94/62
[2019-06-27 16:00] VITALS: BP 98/48
[2019-06-27 20:00] VITALS: BP 91/52
[2019-06-28] VITALS: BP 102/51
[2019-06-28] MEDS: IPRATROPIUM/ALBUTEROL 0.5-3(2.5)MG/3ML NEB HHN SCH ×4 (01:15→13:01)
[2019-06-28 04:00] VITALS: BP 98/63
[2019-06-28 20:00] VITALS: BP 101/68
[2019-06-29] VITALS: BP 98/62
[2019-06-29] MEDS: IPRATROPIUM/ALBUTEROL 0.5-3(2.5)MG/3ML NEB HHN SCH ×3 (02:52→22:40)
[2019-06-29 04:00] VITALS: BP 103/67
[2019-06-29 08:00] VITALS: BP 105/70
[2019-06-29 12:00] VITALS: BP 114/70
[2019-06-29 16:00] VITALS: BP 112/67
[2019-06-29 20:00] VITALS: BP 110/74
[2019-06-30] MEDS: IPRATROPIUM/ALBUTEROL 0.5-3(2.5)MG/3ML NEB HHN SCH ×4 (02:50→21:27)
[2019-06-30 04:00] VITALS: BP 95/63
[2019-06-30 08:00] VITALS: BP 101/72
[2019-06-30 12:00] VITALS: BP 96/62
[2019-06-30 16:00] VITALS: BP 97/60
[2019-06-30 20:00] VITALS: BP 104/68
[2019-07-01] VITALS: BP 103/60
[2019-07-01 08:00] VITALS: BP 96/62
[2019-07-01] MEDS: IPRATROPIUM/ALBUTEROL 0.5-3(2.5)MG/3ML NEB HHN SCH ×3 (08:50→20:15)
[2019-07-01 12:00] VITALS: BP 103/53
[2019-07-01 15:43] VITALS: BP 107/64
[2019-07-01 20:00] VITALS: BP 103/70
[2019-07-02] VITALS: BP 104/67
[2019-07-02] MEDS: IPRATROPIUM/ALBUTEROL 0.5-3(2.5)MG/3ML NEB HHN SCH ×4 (01:09→20:30)
[2019-07-02 04:00] VITALS: BP 100/66
[2019-07-02 08:00] VITALS: BP 119/81
[2019-07-02 12:00] VITALS: BP 124/84
[2019-07-02 16:06] VITALS: BP 105/62
[2019-07-02 20:00] VITALS: BP 99/68
[2019-07-03] VITALS: BP 115/80
[2019-07-03] MEDS: IPRATROPIUM/ALBUTEROL 0.5-3(2.5)MG/3ML NEB HHN SCH ×4 (02:20→20:04)
[2019-07-03 04:00] VITALS: BP 110/76
[2019-07-03 08:00] VITALS: BP 99/63
[2019-07-03 12:00] VITALS: BP 90/59
[2019-07-03 16:00] VITALS: BP 94/59
[2019-07-03 22:32] VITALS: BP 105/72
[2019-07-04] VITALS: BP 94/60
[2019-07-04] MEDS: IPRATROPIUM/ALBUTEROL 0.5-3(2.5)MG/3ML NEB HHN SCH ×4 (01:58→21:15)
[2019-07-04 04:00] VITALS: BP 96/68
[2019-07-04 08:00] VITALS: BP 106/80
[2019-07-04 12:00] VITALS: BP_SYST 103; BP_SYST 99; BP_DIAS 62; BP_DIAS 68
[2019-07-04 20:00] VITALS: BP 100/63
[2019-07-05] VITALS: BP 99/52
[2019-07-05] MEDS: IPRATROPIUM/ALBUTEROL 0.5-3(2.5)MG/3ML NEB HHN SCH ×4 (00:55→20:00)
[2019-07-05 04:00] VITALS: BP 105/59
[2019-07-05 08:00] VITALS: BP 99/70
[2019-07-05 12:00] VITALS: BP 94/67
[2019-07-05] MEDS: ACETAMINOPHEN 325MG TABLET PO PRN (12:19)
[2019-07-05 16:00] VITALS: BP 110/58
[2019-07-05 20:00] VITALS: BP 100/68
[2019-07-06] VITALS: BP 105/62
[2019-07-06] MEDS: ACETAMINOPHEN 325MG TABLET PO PRN (01:17)
[2019-07-06 04:00] VITALS: BP 108/64
[2019-07-06] MEDS: IPRATROPIUM/ALBUTEROL 0.5-3(2.5)MG/3ML NEB HHN SCH ×4 (04:00→21:18)
[2019-07-06 08:00] VITALS: BP 136/78
[2019-07-06 12:00] VITALS: BP 97/68
[2019-07-06 16:00] VITALS: BP 97/70
[2019-07-06 20:00] VITALS: BP 103/68
[2019-07-07] VITALS: BP 109/64
[2019-07-07] MEDS: IPRATROPIUM/ALBUTEROL 0.5-3(2.5)MG/3ML NEB HHN SCH ×4 (02:45→21:27)
[2019-07-07 04:00] VITALS: BP 136/82
[2019-07-07 08:00] VITALS: BP 105/62
[2019-07-07 12:00] VITALS: BP 100/69
[2019-07-07 16:00] VITALS: BP 109/66
[2019-07-07 20:00] VITALS: BP 99/53
[2019-07-08] VITALS: BP 99/72
[2019-07-08 04:00] VITALS: BP 112/76
[2019-07-08] MEDS: IPRATROPIUM/ALBUTEROL 0.5-3(2.5)MG/3ML NEB HHN SCH ×4 (08:22→22:28)
[2019-07-08 20:00] VITALS: BP 109/70
[2019-07-09] VITALS: BP 100/65
[2019-07-09] MEDS: IPRATROPIUM/ALBUTEROL 0.5-3(2.5)MG/3ML NEB HHN SCH ×4 (01:32→20:40)
[2019-07-09 08:00] VITALS: BP 109/71
[2019-07-09 12:00] VITALS: BP 96/63
[2019-07-09 16:47] VITALS: BP 98/58
[2019-07-09 20:00] VITALS: BP 99/62
[2019-07-10] VITALS: BP 103/69
[2019-07-10] MEDS: IPRATROPIUM/ALBUTEROL 0.5-3(2.5)MG/3ML NEB HHN SCH ×3 (02:04→20:05)
[2019-07-10] MEDS: ACETAMINOPHEN 325MG TABLET PO PRN (02:30)
[2019-07-10 04:00] VITALS: BP 108/76
[2019-07-10 08:00] VITALS: BP 110/69
[2019-07-10 12:00] VITALS: BP 101/78
[2019-07-10 16:00] VITALS: BP 101/78
[2019-07-10 20:00] VITALS: BP 99/64
[2019-07-11] VITALS: BP 101/63
[2019-07-11 04:00] VITALS: BP 110/66
[2019-07-11 08:00] VITALS: BP 92/60
[2019-07-11 12:06] VITALS: BP 110/74
[2019-07-11 16:00] VITALS: BP 117/73
[2019-07-11 20:00] VITALS: BP 109/61
[2019-07-12] VITALS (7 sets, daily range): BP systolic 94–113; BP diastolic 63–68
[2019-07-13] VITALS: BP 112/76
[2019-07-13 04:00] VITALS: BP 105/64
[2019-07-13 08:00] VITALS: BP 102/67
[2019-07-13 12:00] VITALS: BP 101/69
[2019-07-13 16:00] VITALS: BP 108/71
[2019-07-13 20:00] VITALS: BP 98/74
[2019-07-14] VITALS (7 sets, daily range): BP systolic 94–122; BP diastolic 56–73
[2019-07-14] MEDS: ACETAMINOPHEN 325MG TABLET PO PRN (01:22)
[2019-07-14 16:39] LABS: BG BASE EXCESS 9.6 mmol/L (-2.0-2.0); BG CARBOXYHEMOGLOBIN 1.3 % (0.5-1.5); BG DEOXYHEMOGLOBIN 14.8 % (0.0-5.0); BG FRACTION INSPIRED OXYGEN 21; BG HCO3 ACT 37.7 mmol/L (22.0-26.0); BG OXYHEMOGLOBIN 83.9 % (94.0-97.0); BG PCO2 69.9 mmHg (35.0-45.0); BG PO2 51.2 mmHg (75.0-100.0); BG SAMPLE SITE RIGHT BRACHIAL; BG TOTAL HEMOGLOBIN 12.5 g/dL (12.0-18.0); BG VENT MODE ROOM AIR
[2019-07-14 17:09] LABS: BASOPHILS % 0.7 % (0.0-2.0); EOSINOPHILS % 5.6 % (0.0-5.0); HEMATOCRIT. 36.2 % (42.0-52.0); HEMOGLOBIN. 11.8 g/dL (14.0-18.0); LYMPHOCYTES % 12.5 % (20.0-50.0); MEAN CORPUSCULAR HEMOGLOBIN 30.1 pg (28.0-32.0); MEAN CORPUSCULAR VOLUME 92.5 fL (80.0-94.0); MEAN PLATELET VOLUME 8.4 fl (7.4-10.4); MONOCYTES % 10.6 % (2.0-8.0); NEUTROPHILS % 70.6 % (40.0-76.0); PLATELET 132 x1000/uL (130-400); RED BLOOD CELL COUNT 3.91 mill/uL (4.7-6.1); RED CELL DISTRIBUTION WIDTH 16.5 % (11.6-14.6)
[2019-07-14 17:11] LABS: CHLORIDE 99 mEq/L (98-107)
[2019-07-15] VITALS: BP 100/66
[2019-07-15 04:00] VITALS: BP 100/64
[2019-07-15 12:00] VITALS: BP 112/68
[2019-07-15 16:00] VITALS: BP 118/69
[2019-07-15 20:00] VITALS: BP 125/80
[2019-07-16] VITALS: BP 122/68
[2019-07-16 04:00] VITALS: BP 123/65
[2019-07-16 08:00] VITALS: BP 104/61
[2019-07-16] MEDS: ACETAMINOPHEN 325MG TABLET PO PRN (08:18)
[2019-07-16 12:00] VITALS: BP 106/67
[2019-07-16 16:00] VITALS: BP 105/60
[2019-07-16 20:00] VITALS: BP 100/56
[2019-07-17] VITALS: BP 108/62
[2019-07-17 04:00] VITALS: BP 113/69
[2019-07-17 08:00] VITALS: BP 109/55
[2019-07-17 12:00] VITALS: BP 113/63
[2019-07-17 16:00] VITALS: BP 111/64
[2019-07-17 16:10] VITALS: BP 113/63
== END 2019-07-17 20:09 | DRG 816 ==
LOC: ER 00:25 → 5EST 04:31 → EDBEDREQSVC 04:38 → EDBEDREQTM 04:38 → EDBEDREQ 04:38 → ENRESERV 07:07 → 5EST 05-19 21:25 → 6EST 06-02 09:55 → 5EST 06-10 03:59 → 6EST 06-20 21:32 → 7WST 07-14 05:02
PROVIDERS: ADMIT Internal Medicine; ATTEND Internal Medicine
PROC: 5A09357 Assistance with Respiratory Ventilation, Less than 24 Consecutive Hours, Continuous Positive Airway Pressure (ICD-10-PCS; principal; 2019-05-05)
PROC: 5A09357 Assistance with Respiratory Ventilation, Less than 24 Consecutive Hours, Continuous Positive Airway Pressure (ICD-10-PCS; 2019-05-14)
PROC: 5A09357 Assistance with Respiratory Ventilation, Less than 24 Consecutive Hours, Continuous Positive Airway Pressure (ICD-10-PCS; 2019-05-15)
PROC: 5A09357 Assistance with Respiratory Ventilation, Less than 24 Consecutive Hours, Continuous Positive Airway Pressure (ICD-10-PCS; 2019-05-16)
PROC: 5A09357 Assistance with Respiratory Ventilation, Less than 24 Consecutive Hours, Continuous Positive Airway Pressure (ICD-10-PCS; 2019-05-17)
PROC: 5A09357 Assistance with Respiratory Ventilation, Less than 24 Consecutive Hours, Continuous Positive Airway Pressure (ICD-10-PCS; 2019-05-18)
PROC: 5A09357 Assistance with Respiratory Ventilation, Less than 24 Consecutive Hours, Continuous Positive Airway Pressure (ICD-10-PCS; 2019-05-19)
PROC: 5A09357 Assistance with Respiratory Ventilation, Less than 24 Consecutive Hours, Continuous Positive Airway Pressure (ICD-10-PCS; 2019-05-20)
PROC: 5A09357 Assistance with Respiratory Ventilation, Less than 24 Consecutive Hours, Continuous Positive Airway Pressure (ICD-10-PCS; 2019-05-21)
PROC: 5A09357 Assistance with Respiratory Ventilation, Less than 24 Consecutive Hours, Continuous Positive Airway Pressure (ICD-10-PCS; 2019-05-22)
PROC: 5A09357 Assistance with Respiratory Ventilation, Less than 24 Consecutive Hours, Continuous Positive Airway Pressure (ICD-10-PCS; 2019-05-23)
PROC: 5A09357 Assistance with Respiratory Ventilation, Less than 24 Consecutive Hours, Continuous Positive Airway Pressure (ICD-10-PCS; 2019-05-24)
DX: T40.5X1A Poisoning by cocaine, accidental (unintentional), initial encounter (principal); J96.21 Acute and chronic respiratory failure with hypoxia; E44.0 Moderate protein-calorie malnutrition; E87.2 Acidosis; D69.6 Thrombocytopenia, unspecified; I47.1 Supraventricular tachycardia; J68.0 Bronchitis and pneumonitis due to chemicals, gases, fumes and vapors; D64.9 Anemia, unspecified; F14.10 Cocaine abuse, uncomplicated; F17.200 Nicotine dependence, unspecified, uncomplicated; Z59.0 Homelessness; Z99.81 Dependence on supplemental oxygen; Z68.1 Body mass index [BMI] 19.9 or less, adult; Z79.899 Other long term (current) drug therapy; Y92.89 Other specified places as the place of occurrence of the external cause
CPT/HCPCS: 36415; 36600; 71045; 80048; 80053; 80061; 80305; 80320; 82375; 82550; 82553; 82805; 82962; 83036; 83605; 83735; 83880; 84484; 85025; 85027; 90686; 90732; 93005; 93970; 94640; 94660; 96365; 96366; 96368; 96372; 97110; 97116; 97162; 97164; 97166; 97168; 97530; 97535; 99285; J0692; J1650; J1956; J2785; J2920; J2930; J3105; J3475; J7030; J7040; J7060; J7512; J7620; J7626; G0480

== ENCOUNTER 2019-09-01 02:35 | Inpatient (IN) | payer MEDICAID ==
[~2019-09-01] VITALS: Ht 185.4 cm; Wt 72.8 kg
[2019-09-01] VITALS (8 sets, daily range): BP systolic 104–155; BP diastolic 59–105
[2019-09-01] MEDS ORDERED: METHYLPREDNISOLONE SOD SUCC 125 MG/2 ML VIAL IV STA (03:07)
[2019-09-01] MEDS ORDERED: ONDANSETRON HCL 4MG/2ML INJ IV STA (03:07)
[2019-09-01] MEDS ORDERED: IPRATROPIUM BROMIDE (0.02%) 0.5MG/2.5ML NEB HHN STA (03:07)
[2019-09-01] MEDS: ALBUTEROL (0.083%) 2.5MG/3ML NEB HHN SCH (03:27)
[2019-09-01 03:37] LABS: CHLORIDE 100 mEq/L (98-107)
[2019-09-01 03:40] LABS: BG BASE EXCESS 4.3 mmol/L (-2.0-2.0); BG CARBOXYHEMOGLOBIN 3.8 % (0.5-1.5); BG DEOXYHEMOGLOBIN 0.3 % (0.0-5.0); BG FRACTION INSPIRED OXYGEN 100; BG HCO3 ACT 34.7 mmol/L (22.0-26.0); BG METHEMOGLOBIN 0.3 % (0.0-1.5); BG OXYGEN SATURATION 99.7 % (92.0-98.5); BG OXYHEMOGLOBIN 95.6 % (94.0-97.0); BG PCO2 81.4 mmHg (35.0-45.0); BG PH 7.248 (7.350-7.450); BG PO2 394.2 mmHg (75.0-100.0); BG SAMPLE SITE RIGHT RADIAL; BG TOTAL HEMOGLOBIN 15.1 g/dL (12.0-18.0); BG VENT MODE MASK - NRB
[2019-09-01 03:48] LABS: BASOPHILS % 0.7 % (0.0-2.0); EOSINOPHILS % 1.4 % (0.0-5.0); HEMATOCRIT. 46.4 % (42.0-52.0); HEMOGLOBIN. 15.3 g/dL (14.0-18.0); LYMPHOCYTES % 30.9 % (20.0-50.0); MEAN CORPUSCULAR HEMOGLOBIN 30.1 pg (28.0-32.0); MEAN CORPUSCULAR VOLUME 91.6 fL (80.0-94.0); MEAN PLATELET VOLUME 9.5 fl (7.4-10.4); MONOCYTES % 14.4 % (2.0-8.0); NEUTROPHILS % 52.6 % (40.0-76.0); PLATELET 150 x1000/uL (130-400); RED BLOOD CELL COUNT 5.07 mill/uL (4.7-6.1); RED CELL DISTRIBUTION WIDTH 15.1 % (11.6-14.6)
[2019-09-01] MEDS ORDERED: NITROGLYCERIN 0.4MG TABLET SL SL PRN (07:15)
[2019-09-01] MEDS ORDERED: MAGNESIUM/ALUMINUM HYDROXIDE/SIMETHICONE 30ML UDC PO PRN (07:15)
[2019-09-01] MEDS ORDERED: CLONIDINE 0.1MG TABLET PO PRN (07:15)
[2019-09-01] MEDS ORDERED: DOCUSATE SODIUM 100MG CAPSULE PO PRN (07:15)
[2019-09-01] MEDS ORDERED: KETOROLAC 15MG/ML VIAL IV PRN (07:15)
[2019-09-01] MEDS ORDERED: ZOLPIDEM TARTRATE 5MG TABLET PO PRN (07:15)
[2019-09-01] MEDS ORDERED: IPRATROPIUM/ALBUTEROL 0.5-3(2.5)MG/3ML NEB NEB PRN (07:15)
[2019-09-01] MEDS ORDERED: POTASSIUM CHLORIDE 20MEQ TABLET SR PO NR (07:35)
[2019-09-01 07:43] LABS: ETHANOL BLOOD < 10 mg/dL
[2019-09-01] MEDS ORDERED: KCL 20MEQ/100ML PREMIX 100 ML IV SCH (08:00)
[2019-09-01] MEDS: ONDANSETRON HCL 4MG/2ML INJ IV PRN (10:53)
[2019-09-01] MEDS: ENOXAPARIN 40MG/0.4ML SYR SUBCUT SCH (10:54)
[2019-09-01] MEDS: FAMOTIDINE 20MG TABLET PO SCH ×2 (10:55→23:36)
[2019-09-01] MEDS: GUAIFENESIN 200MG/10ML SUGAR FREE UDC PO PRN (10:55)
[2019-09-01] MEDS ORDERED: SODIUM CHL 0.9% + KCL 20MEQ/L 1,000 ML IV SCH (11:00)
[2019-09-01] MEDS: METHYLPREDNISOLONE SOD SUCC 125 MG/2 ML VIAL IV SCH ×2 (11:03→17:47)
[2019-09-01] MEDS: DILTIAZEM HCL 60MG TABLET PO SCH ×3 (11:04→23:36)
[2019-09-01] MEDS ORDERED: IPRATROPIUM/ALBUTEROL 0.5-3(2.5)MG/3ML NEB HHN SCH (12:00)
[2019-09-01] MEDS: CEFEPIME 1,000 MG in DEXTROSE 5% WATER 50 ML IV SCH ×2 (16:53→23:36)
[2019-09-01 16:56] LABS: CREATINE KINASE 116 IU/L (39-308)
[2019-09-01 16:57] LABS: CREATINE KINASE MB FRACTION 2.3 ng/mL (0.5-3.6)
[2019-09-01 19:04] LABS: BG CARBOXYHEMOGLOBIN 1.6 % (0.5-1.5); BG DEOXYHEMOGLOBIN 2.7 % (0.0-5.0); BG FRACTION INSPIRED OXYGEN 36; BG HCO3 ACT 37.1 mmol/L (22.0-26.0); BG METHEMOGLOBIN 0.4 % (0.0-1.5); BG OXYGEN SATURATION 97.2 % (92.0-98.5); BG OXYHEMOGLOBIN 95.3 % (94.0-97.0); BG PCO2 82.8 mmHg (35.0-45.0); BG PH 7.269 (7.350-7.450); BG PO2 99.7 mmHg (75.0-100.0); BG SAMPLE SITE RIGHT RADIAL; BG TOTAL HEMOGLOBIN 13.7 g/dL (12.0-18.0); BG VENT MODE NASAL CANNULA
[2019-09-01 19:12] LABS: *AMPHETAMINES SCREEN URINE NEGATIVE (NEGATIVE); *BARBITURATES SCREEN URINE NEGATIVE (NEGATIVE)
[2019-09-01 19:13] LABS: *BENZODIAZEPINES SCREEN URINE NEGATIVE (NEGATIVE); *COCAINE SCREEN URINE PRESUMTIVE POSITIVE (NEGATIVE); CANNABINOID URINE SCREEN NEGATIVE (NEGATIVE); METHADONE URINE SCREEN NEGATIVE (NEGATIVE); OPIATES URINE SCREEN NEGATIVE (NEGATIVE); PHENCYCLIDINE URINE SCREEN PRESUMTIVE POSITIVE (NEGATIVE)
[2019-09-01 19:21] LABS: CLARITY URINE CLEAR (CLEAR); COLOR URINE YELLOW (YELLOW); KETONES URINE NEGATIVE (NEGATIVE); LEUKOCYTE ESTERASE URINE NEGATIVE (NEGATIVE); NITRITE URINE NEGATIVE (NEGATIVE); OCCULT BLOOD URINE TRACE (NEGATIVE); PH URINE 5.5 (4.5-8.0); PROTEIN URINE 3+ (NEGATIVE); SPECIFIC GRAVITY URINE 1.024 (1.005-1.030); UROBILINOGEN URINE 0.2 E.U./dL (0.2-1.0)
[2019-09-01] MEDS: THEOPHYLLINE ANHYDROUS 80 MG/15 ML 120ML PO SCH (23:36)
[2019-09-01] MEDS: SODIUM CHL 0.9% + KCL 20MEQ/L 1,000 ML IV SCH (23:43)
[2019-09-02] VITALS (12 sets, daily range): BP systolic 100–141; BP diastolic 54–84
[2019-09-02 00:24] LABS: CREATINE KINASE 107 IU/L (39-308)
[2019-09-02 00:26] LABS: CREATINE KINASE MB FRACTION 2.3 ng/mL (0.5-3.6)
[2019-09-02] MEDS: IPRATROPIUM/ALBUTEROL 0.5-3(2.5)MG/3ML NEB HHN SCH ×4 (02:05→20:50)
[2019-09-02] MEDS: METHYLPREDNISOLONE SOD SUCC 125 MG/2 ML VIAL IV SCH ×3 (03:34→18:38)
[2019-09-02] MEDS: DILTIAZEM HCL 60MG TABLET PO SCH ×3 (05:34→18:38)
[2019-09-02] MEDS: THEOPHYLLINE ANHYDROUS 80 MG/15 ML 120ML PO SCH ×3 (05:34→22:03)
[2019-09-02 07:16] LABS: HEMATOCRIT. 41.3 % (42.0-52.0); HEMOGLOBIN. 13.3 g/dL (14.0-18.0); MEAN CORPUSCULAR VOLUME 93.4 fL (80.0-94.0); PLATELET 112 x1000/uL (130-400); RED BLOOD CELL COUNT 4.42 mill/uL (4.7-6.1); RED CELL DISTRIBUTION WIDTH 14.9 % (11.6-14.6)
[2019-09-02 07:40] LABS: CHLORIDE 101 mEq/L (98-107)
[2019-09-02 07:56] LABS: PHOSPHORUS 3.1 mg/dL (2.5-4.9)
[2019-09-02] MEDS: GUAIFENESIN 200MG/10ML SUGAR FREE UDC PO PRN (08:30)
[2019-09-02] MEDS: ENOXAPARIN 40MG/0.4ML SYR SUBCUT SCH (08:31)
[2019-09-02] MEDS: FAMOTIDINE 20MG TABLET PO SCH ×2 (08:31→22:03)
[2019-09-02] MEDS: ONDANSETRON HCL 4MG/2ML INJ IV PRN (08:31)
[2019-09-02] MEDS: SODIUM CHL 0.9% + KCL 20MEQ/L 1,000 ML IV SCH ×2 (08:31→18:39)
[2019-09-02 11:03] LABS: PLATELET ESTIMATE DECREASED
[2019-09-02] MEDS: CEFEPIME 1,000 MG in DEXTROSE 5% WATER 50 ML IV SCH ×2 (13:51→22:37)
[2019-09-03] VITALS (9 sets, daily range): BP systolic 99–146; BP diastolic 56–86
[2019-09-03] MEDS: IPRATROPIUM/ALBUTEROL 0.5-3(2.5)MG/3ML NEB HHN SCH ×4 (01:50→21:43)
[2019-09-03] MEDS: METHYLPREDNISOLONE SOD SUCC 125 MG/2 ML VIAL IV SCH ×3 (04:02→19:00)
[2019-09-03] MEDS: SODIUM CHL 0.9% + KCL 20MEQ/L 1,000 ML IV SCH ×3 (04:04→22:48)
[2019-09-03] MEDS: DILTIAZEM HCL 60MG TABLET PO SCH ×5 (06:00→23:04)
[2019-09-03] MEDS: THEOPHYLLINE ANHYDROUS 80 MG/15 ML 120ML PO SCH ×3 (06:00→22:38)
[2019-09-03] MEDS: CEFEPIME 1,000 MG in DEXTROSE 5% WATER 50 ML IV SCH ×2 (09:04→22:37)
[2019-09-03] MEDS: FAMOTIDINE 20MG TABLET PO SCH ×2 (09:25→22:38)
[2019-09-03] MEDS: ENOXAPARIN 40MG/0.4ML SYR SUBCUT SCH (09:26)
[2019-09-04] VITALS (10 sets, daily range): BP systolic 111–154; BP diastolic 56–101
[2019-09-04] MEDS: IPRATROPIUM/ALBUTEROL 0.5-3(2.5)MG/3ML NEB HHN SCH ×4 (01:10→20:45)
[2019-09-04] MEDS: METHYLPREDNISOLONE SOD SUCC 125 MG/2 ML VIAL IV SCH ×3 (02:47→19:00)
[2019-09-04] MEDS: DILTIAZEM HCL 60MG TABLET PO SCH ×3 (06:00→18:00)
[2019-09-04] MEDS: THEOPHYLLINE ANHYDROUS 80 MG/15 ML 120ML PO SCH ×3 (06:00→22:39)
[2019-09-04] MEDS: CEFEPIME 1,000 MG in DEXTROSE 5% WATER 50 ML IV SCH ×2 (09:00→22:40)
[2019-09-04] MEDS: SODIUM CHL 0.9% + KCL 20MEQ/L 1,000 ML IV SCH ×2 (09:00→19:00)
[2019-09-04] MEDS: GUAIFENESIN 200MG/10ML SUGAR FREE UDC PO PRN (12:00)
[2019-09-04] MEDS: FAMOTIDINE 20MG TABLET PO SCH ×2 (12:00→22:38)
[2019-09-04] MEDS: ENOXAPARIN 40MG/0.4ML SYR SUBCUT SCH (12:00)
[2019-09-05] VITALS (12 sets, daily range): BP systolic 117–174; BP diastolic 39–93
[2019-09-05] MEDS: IPRATROPIUM/ALBUTEROL 0.5-3(2.5)MG/3ML NEB HHN SCH ×4 (01:27→20:24)
[2019-09-05] MEDS: METHYLPREDNISOLONE SOD SUCC 125 MG/2 ML VIAL IV SCH ×3 (02:58→18:50)
[2019-09-05] MEDS: SODIUM CHL 0.9% + KCL 20MEQ/L 1,000 ML IV SCH ×2 (02:58→14:18)
[2019-09-05] MEDS: THEOPHYLLINE ANHYDROUS 80 MG/15 ML 120ML PO SCH ×3 (05:19→21:23)
[2019-09-05] MEDS: DILTIAZEM HCL 60MG TABLET PO SCH ×4 (05:39→18:51)
[2019-09-05] MEDS: CEFEPIME 1,000 MG in DEXTROSE 5% WATER 50 ML IV SCH ×2 (08:04→21:24)
[2019-09-05] MEDS: ENOXAPARIN 40MG/0.4ML SYR SUBCUT SCH (08:04)
[2019-09-05] MEDS: FAMOTIDINE 20MG TABLET PO SCH ×2 (08:04→21:23)
[2019-09-06] VITALS (11 sets, daily range): BP systolic 135–158; BP diastolic 75–91
[2019-09-06] MEDS: SODIUM CHL 0.9% + KCL 20MEQ/L 1,000 ML IV SCH ×2 (00:25→10:00)
[2019-09-06] MEDS: DILTIAZEM HCL 60MG TABLET PO SCH ×5 (00:25→23:21)
[2019-09-06] MEDS: METHYLPREDNISOLONE SOD SUCC 125 MG/2 ML VIAL IV SCH ×3 (02:09→22:33)
[2019-09-06] MEDS: THEOPHYLLINE ANHYDROUS 80 MG/15 ML 120ML PO SCH ×3 (05:45→22:00)
[2019-09-06] MEDS: IPRATROPIUM/ALBUTEROL 0.5-3(2.5)MG/3ML NEB HHN SCH ×3 (08:37→20:50)
[2019-09-06] MEDS: CEFEPIME 1,000 MG in DEXTROSE 5% WATER 50 ML IV SCH ×2 (09:48→22:34)
[2019-09-06] MEDS: ENOXAPARIN 40MG/0.4ML SYR SUBCUT SCH (09:48)
[2019-09-06] MEDS: FAMOTIDINE 20MG TABLET PO SCH ×2 (09:48→21:00)
[2019-09-07] VITALS (7 sets, daily range): BP systolic 134–157; BP diastolic 56–103
[2019-09-07] MEDS: METHYLPREDNISOLONE SOD SUCC 125 MG/2 ML VIAL IV SCH ×2 (02:30→12:12)
[2019-09-07] MEDS: DILTIAZEM HCL 60MG TABLET PO SCH ×5 (02:40→18:35)
[2019-09-07] MEDS: THEOPHYLLINE ANHYDROUS 80 MG/15 ML 120ML PO SCH ×3 (05:19→22:20)
[2019-09-07] MEDS: IPRATROPIUM/ALBUTEROL 0.5-3(2.5)MG/3ML NEB HHN SCH ×2 (08:35→22:05)
[2019-09-07] MEDS: ENOXAPARIN 40MG/0.4ML SYR SUBCUT SCH (09:00)
[2019-09-07] MEDS: FAMOTIDINE 20MG TABLET PO SCH ×2 (09:00→22:09)
[2019-09-08] VITALS: BP 151/81
[2019-09-08] MEDS: DILTIAZEM HCL 60MG TABLET PO SCH ×5 (00:27→23:58)
[2019-09-08] MEDS: METHYLPREDNISOLONE SOD SUCC 125 MG/2 ML VIAL IV SCH ×2 (02:33→11:52)
[2019-09-08] MEDS: IPRATROPIUM/ALBUTEROL 0.5-3(2.5)MG/3ML NEB HHN SCH ×3 (02:42→20:36)
[2019-09-08 04:00] VITALS: BP 124/66
[2019-09-08 08:00] VITALS: BP 127/79
[2019-09-08] MEDS: FAMOTIDINE 20MG TABLET PO SCH (08:36)
[2019-09-08] MEDS: ENOXAPARIN 40MG/0.4ML SYR SUBCUT SCH (08:36)
[2019-09-08] MEDS: THEOPHYLLINE ANHYDROUS 80 MG/15 ML 120ML PO SCH ×4 (08:37→20:57)
[2019-09-08 12:00] VITALS: BP 143/75
[2019-09-08 16:00] VITALS: BP 129/75
[2019-09-08 20:00] VITALS: BP 145/84
[2019-09-08] MEDS: METHYLPREDNISOLONE SOD SUCC 40 MG/ML VIAL IV SCH ×2 (20:00→20:53)
[2019-09-08] MEDS: FAMOTIDINE 40MG TABLET PO SCH (20:56)
[2019-09-09] VITALS: BP 155/80
[2019-09-09] MEDS: IPRATROPIUM/ALBUTEROL 0.5-3(2.5)MG/3ML NEB HHN SCH ×3 (02:10→13:50)
[2019-09-09 04:00] VITALS: BP 153/80
[2019-09-09] MEDS: METHYLPREDNISOLONE SOD SUCC 40 MG/ML VIAL IV SCH ×2 (04:00→13:12)
[2019-09-09] MEDS: THEOPHYLLINE ANHYDROUS 80 MG/15 ML 120ML PO SCH ×3 (06:00→22:09)
[2019-09-09] MEDS: DILTIAZEM HCL 60MG TABLET PO SCH ×2 (06:00→13:14)
[2019-09-09] MEDS: FAMOTIDINE 40MG TABLET PO SCH ×2 (09:58→22:09)
[2019-09-09] MEDS: ENOXAPARIN 40MG/0.4ML SYR SUBCUT SCH (09:58)
[2019-09-09 20:00] VITALS: BP 143/79
[2019-09-10] VITALS: BP 136/73
[2019-09-10] MEDS: IPRATROPIUM/ALBUTEROL 0.5-3(2.5)MG/3ML NEB HHN SCH ×4 (00:03→21:58)
[2019-09-10 04:00] VITALS: BP 130/74
[2019-09-10] MEDS: THEOPHYLLINE ANHYDROUS 80 MG/15 ML 120ML PO SCH ×3 (05:56→22:22)
[2019-09-10 08:00] VITALS: BP 145/95
[2019-09-10] MEDS: METHYLPREDNISOLONE SOD SUCC 40 MG/ML VIAL IV SCH ×2 (09:14→17:40)
[2019-09-10] MEDS: FAMOTIDINE 40MG TABLET PO SCH ×2 (09:14→21:00)
[2019-09-10] MEDS: ENOXAPARIN 40MG/0.4ML SYR SUBCUT SCH (09:15)
[2019-09-10 12:00] VITALS: BP 136/86
[2019-09-10] MEDS: DILTIAZEM HCL 60MG TABLET PO SCH ×2 (12:28→17:41)
[2019-09-10 16:00] VITALS: BP 117/68
[2019-09-10 20:00] VITALS: BP 124/65
[2019-09-11] VITALS: BP 110/67
[2019-09-11] MEDS: DILTIAZEM HCL 60MG TABLET PO SCH ×4 (00:14→18:39)
[2019-09-11] MEDS: THEOPHYLLINE ANHYDROUS 80 MG/15 ML 120ML PO SCH ×2 (05:18→14:51)
[2019-09-11] MEDS: IPRATROPIUM/ALBUTEROL 0.5-3(2.5)MG/3ML NEB HHN SCH ×2 (07:49→21:43)
[2019-09-11 08:00] VITALS: BP 138/78
[2019-09-11] MEDS: FAMOTIDINE 40MG TABLET PO SCH ×2 (08:44→21:20)
[2019-09-11] MEDS: METHYLPREDNISOLONE SOD SUCC 40 MG/ML VIAL IV SCH ×2 (08:44→09:15)
[2019-09-11] MEDS: ENOXAPARIN 40MG/0.4ML SYR SUBCUT SCH (08:46)
[2019-09-11 09:38] LABS: HEMATOCRIT 41.2 % (42.0-52.0); HEMOGLOBIN 13.3 g/dL (14.0-18.0); MEAN CORPUSCULAR HEMOGLOBIN 29.3 pg (28.0-32.0); MEAN CORPUSCULAR VOLUME 90.7 fL (80.0-94.0); PLATELET 128 x1000/uL (130-400); RED BLOOD CELL COUNT 4.53 mill/uL (4.7-6.1); RED CELL DISTRIBUTION WIDTH 15.4 % (11.6-14.6)
[2019-09-11 09:41] LABS: CHLORIDE 91 mEq/L (98-107)
[2019-09-11 12:00] VITALS: BP 148/76
[2019-09-11 16:00] VITALS: BP 131/71
[2019-09-11 20:00] VITALS: BP 126/73
[2019-09-11 22:00] VITALS: BP 126/73
[2019-09-12] VITALS: BP 129/80
[2019-09-12] MEDS: DILTIAZEM HCL 60MG TABLET PO SCH ×4 (01:03→17:08)
[2019-09-12] MEDS: THEOPHYLLINE ANHYDROUS 80 MG/15 ML 120ML PO SCH ×4 (01:03→21:11)
[2019-09-12 04:00] VITALS: BP 102/61
[2019-09-12 08:00] VITALS: BP 125/68
[2019-09-12] MEDS: FAMOTIDINE 40MG TABLET PO SCH ×2 (09:00→20:53)
[2019-09-12] MEDS: METHYLPREDNISOLONE SOD SUCC 40 MG/ML VIAL IV SCH (09:52)
[2019-09-12] MEDS: ENOXAPARIN 40MG/0.4ML SYR SUBCUT SCH (09:52)
[2019-09-12] MEDS: IPRATROPIUM/ALBUTEROL 0.5-3(2.5)MG/3ML NEB HHN SCH ×2 (10:10→15:30)
[2019-09-12 12:00] VITALS: BP 126/75
[2019-09-12 16:00] VITALS: BP 128/80
[2019-09-12 20:00] VITALS: BP 103/62
[2019-09-13] VITALS: BP 118/66
[2019-09-13] MEDS: IPRATROPIUM/ALBUTEROL 0.5-3(2.5)MG/3ML NEB HHN SCH ×4 (00:15→23:58)
[2019-09-13] MEDS: DILTIAZEM HCL 60MG TABLET PO SCH ×4 (00:26→17:24)
[2019-09-13 04:00] VITALS: BP 116/71
[2019-09-13] MEDS: THEOPHYLLINE ANHYDROUS 80 MG/15 ML 120ML PO SCH ×3 (05:52→21:27)
[2019-09-13 08:00] VITALS: BP 131/84
[2019-09-13] MEDS: FAMOTIDINE 40MG TABLET PO SCH ×2 (08:43→21:26)
[2019-09-13] MEDS: METHYLPREDNISOLONE SOD SUCC 40 MG/ML VIAL IV SCH (08:44)
[2019-09-13] MEDS: ENOXAPARIN 40MG/0.4ML SYR SUBCUT SCH (08:44)
[2019-09-13 12:00] VITALS: BP 129/78
[2019-09-13 16:00] VITALS: BP 128/82
[2019-09-13 20:00] VITALS: BP 104/55
[2019-09-14] VITALS: BP 109/51
[2019-09-14 04:00] VITALS: BP 115/77
[2019-09-14] MEDS: DILTIAZEM HCL 60MG TABLET PO SCH ×5 (05:35→23:53)
[2019-09-14] MEDS: THEOPHYLLINE ANHYDROUS 80 MG/15 ML 120ML PO SCH ×3 (05:35→21:45)
[2019-09-14 08:00] VITALS: BP 116/76
[2019-09-14] MEDS: PREDNISONE 20MG TABLET PO SCH (08:42)
[2019-09-14] MEDS: IPRATROPIUM/ALBUTEROL 0.5-3(2.5)MG/3ML NEB HHN SCH (08:45)
[2019-09-14] MEDS: FAMOTIDINE 40MG TABLET PO SCH (08:46)
[2019-09-14] MEDS: ENOXAPARIN 40MG/0.4ML SYR SUBCUT SCH (08:47)
[2019-09-14 12:00] VITALS: BP 109/76
[2019-09-14 16:18] VITALS: BP 115/68
[2019-09-14 20:00] VITALS: BP 119/69
[2019-09-14] MEDS: FAMOTIDINE 20MG TABLET PO SCH (21:45)
[2019-09-15] VITALS: BP 110/61
[2019-09-15] MEDS: IPRATROPIUM/ALBUTEROL 0.5-3(2.5)MG/3ML NEB HHN SCH ×2 (01:00→08:05)
[2019-09-15 04:00] VITALS: BP 136/86
[2019-09-15] MEDS: THEOPHYLLINE ANHYDROUS 80 MG/15 ML 120ML PO SCH ×3 (05:33→21:48)
[2019-09-15] MEDS: DILTIAZEM HCL 60MG TABLET PO SCH ×3 (05:33→18:23)
[2019-09-15 08:00] VITALS: BP 120/77
[2019-09-15] MEDS: PREDNISONE 20MG TABLET PO SCH (11:30)
[2019-09-15] MEDS: ENOXAPARIN 40MG/0.4ML SYR SUBCUT SCH (11:31)
[2019-09-15] MEDS: FAMOTIDINE 20MG TABLET PO SCH ×2 (11:31→21:13)
[2019-09-15 12:00] VITALS: BP 126/81
[2019-09-15 16:00] VITALS: BP 128/82
[2019-09-15 20:00] VITALS: BP 113/66
[2019-09-16] VITALS: BP 122/72
[2019-09-16] MEDS: DILTIAZEM HCL 60MG TABLET PO SCH ×4 (00:11→17:03)
[2019-09-16 04:00] VITALS: BP 107/61
[2019-09-16] MEDS: THEOPHYLLINE ANHYDROUS 80 MG/15 ML 120ML PO SCH ×3 (05:32→21:00)
[2019-09-16 08:00] VITALS: BP 134/78
[2019-09-16] MEDS: FAMOTIDINE 20MG TABLET PO SCH ×2 (08:21→20:58)
[2019-09-16] MEDS: PREDNISONE 20MG TABLET PO SCH (08:21)
[2019-09-16] MEDS: ENOXAPARIN 40MG/0.4ML SYR SUBCUT SCH (08:21)
[2019-09-16] MEDS: IPRATROPIUM/ALBUTEROL 0.5-3(2.5)MG/3ML NEB HHN SCH ×2 (09:37→16:37)
[2019-09-16 12:00] VITALS: BP 120/69
[2019-09-16 16:00] VITALS: BP 117/69
[2019-09-16 20:00] VITALS: BP 113/62
[2019-09-17] VITALS: BP 122/65
[2019-09-17] MEDS: DILTIAZEM HCL 60MG TABLET PO SCH ×4 (00:21→18:00)
[2019-09-17] MEDS: IPRATROPIUM/ALBUTEROL 0.5-3(2.5)MG/3ML NEB HHN SCH ×2 (01:22→17:31)
[2019-09-17 04:00] VITALS: BP 101/63
[2019-09-17] MEDS: THEOPHYLLINE ANHYDROUS 80 MG/15 ML 120ML PO SCH ×3 (05:44→21:02)
[2019-09-17 08:00] VITALS: BP 125/73
[2019-09-17] MEDS: FAMOTIDINE 20MG TABLET PO SCH ×2 (08:21→21:02)
[2019-09-17] MEDS: PREDNISONE 20MG TABLET PO SCH (08:21)
[2019-09-17] MEDS: ENOXAPARIN 40MG/0.4ML SYR SUBCUT SCH (08:22)
[2019-09-17 12:00] VITALS: BP 123/61
[2019-09-17 16:00] VITALS: BP 121/71
[2019-09-17 20:00] VITALS: BP 123/78
[2019-09-18] VITALS: BP 110/60
[2019-09-18] MEDS: IPRATROPIUM/ALBUTEROL 0.5-3(2.5)MG/3ML NEB HHN SCH ×5 (00:05→16:40)
[2019-09-18] MEDS: DILTIAZEM HCL 60MG TABLET PO SCH ×5 (00:17→23:55)
[2019-09-18 04:00] VITALS: BP 115/69
[2019-09-18] MEDS: THEOPHYLLINE ANHYDROUS 80 MG/15 ML 120ML PO SCH ×3 (05:34→21:13)
[2019-09-18 08:00] VITALS: BP 114/52
[2019-09-18] MEDS: PREDNISONE 20MG TABLET PO SCH (09:40)
[2019-09-18] MEDS: ENOXAPARIN 40MG/0.4ML SYR SUBCUT SCH (09:41)
[2019-09-18] MEDS: FAMOTIDINE 20MG TABLET PO SCH ×2 (09:41→21:12)
[2019-09-18 12:00] VITALS: BP 116/74
[2019-09-18 16:00] VITALS: BP 107/67
[2019-09-18 20:00] VITALS: BP 121/68
[2019-09-19] VITALS: BP 117/70
[2019-09-19 04:00] VITALS: BP 106/69
[2019-09-19] MEDS: THEOPHYLLINE ANHYDROUS 80 MG/15 ML 120ML PO SCH ×3 (06:17→21:18)
[2019-09-19] MEDS: DILTIAZEM HCL 60MG TABLET PO SCH ×3 (06:17→18:38)
[2019-09-19 06:43] LABS: BASOPHILS % 0.2 % (0.0-2.0); EOSINOPHILS % 0.5 % (0.0-5.0); HEMATOCRIT. 39.4 % (42.0-52.0); HEMOGLOBIN. 13.1 g/dL (14.0-18.0); LYMPHOCYTES % 14.1 % (20.0-50.0); MEAN CORPUSCULAR VOLUME 89.9 fL (80.0-94.0); MEAN PLATELET VOLUME 8.4 fl (7.4-10.4); MONOCYTES % 12.7 % (2.0-8.0); NEUTROPHILS % 72.5 % (40.0-76.0); PLATELET 117 x1000/uL (130-400); RED BLOOD CELL COUNT 4.38 mill/uL (4.7-6.1); RED CELL DISTRIBUTION WIDTH 15.8 % (11.6-14.6)
[2019-09-19 06:48] LABS: CHLORIDE 96 mEq/L (98-107)
[2019-09-19 08:00] VITALS: BP 114/72
[2019-09-19] MEDS: ENOXAPARIN 40MG/0.4ML SYR SUBCUT SCH (09:00)
[2019-09-19] MEDS: PREDNISONE 20MG TABLET PO SCH (09:00)
[2019-09-19] MEDS: FAMOTIDINE 20MG TABLET PO SCH ×2 (09:00→21:17)
[2019-09-19 12:00] VITALS: BP 113/70
[2019-09-19 16:00] VITALS: BP 107/68
[2019-09-19] MEDS: IPRATROPIUM/ALBUTEROL 0.5-3(2.5)MG/3ML NEB HHN SCH (16:46)
[2019-09-19 20:00] VITALS: BP 113/70
[2019-09-20] VITALS: BP 116/72
[2019-09-20] MEDS: DILTIAZEM HCL 60MG TABLET PO SCH ×5 (00:41→23:36)
[2019-09-20 04:00] VITALS: BP 104/69
[2019-09-20] MEDS: ACETAMINOPHEN 325MG TABLET PO PRN (04:39)
[2019-09-20] MEDS: THEOPHYLLINE ANHYDROUS 80 MG/15 ML 120ML PO SCH ×3 (05:03→21:35)
[2019-09-20 08:00] VITALS: BP 97/61
[2019-09-20] MEDS: FAMOTIDINE 20MG TABLET PO SCH ×2 (08:19→21:36)
[2019-09-20] MEDS: PREDNISONE 20MG TABLET PO SCH (08:19)
[2019-09-20] MEDS: ENOXAPARIN 40MG/0.4ML SYR SUBCUT SCH (08:20)
[2019-09-20] MEDS: IPRATROPIUM/ALBUTEROL 0.5-3(2.5)MG/3ML NEB HHN SCH ×2 (09:53→13:39)
[2019-09-20 12:00] VITALS: BP 119/75
[2019-09-20 16:00] VITALS: BP 119/79
[2019-09-20 20:00] VITALS: BP 122/70
[2019-09-21] VITALS: BP 141/66
[2019-09-21 04:00] VITALS: BP_SYST 112; BP_SYST 164; BP_DIAS 74; BP_DIAS 85
[2019-09-21] MEDS: THEOPHYLLINE ANHYDROUS 80 MG/15 ML 120ML PO SCH ×3 (05:11→21:28)
[2019-09-21] MEDS: DILTIAZEM HCL 60MG TABLET PO SCH ×3 (05:11→17:12)
[2019-09-21 08:00] VITALS: BP 105/60
[2019-09-21] MEDS: ENOXAPARIN 40MG/0.4ML SYR SUBCUT SCH (09:00)
[2019-09-21] MEDS: PREDNISONE 20MG TABLET PO SCH (09:16)
[2019-09-21] MEDS: FAMOTIDINE 20MG TABLET PO SCH ×2 (09:16→21:28)
[2019-09-21] MEDS: IPRATROPIUM/ALBUTEROL 0.5-3(2.5)MG/3ML NEB HHN SCH ×2 (09:37→22:00)
[2019-09-21 12:00] VITALS: BP 103/50
[2019-09-21 20:00] VITALS: BP 135/100
[2019-09-22] VITALS: BP 128/91
[2019-09-22] MEDS: DILTIAZEM HCL 60MG TABLET PO SCH ×4 (01:06→17:31)
[2019-09-22 04:00] VITALS: BP 131/76
[2019-09-22] MEDS: THEOPHYLLINE ANHYDROUS 80 MG/15 ML 120ML PO SCH ×3 (06:14→21:27)
[2019-09-22] MEDS: FAMOTIDINE 20MG TABLET PO SCH ×2 (08:30→21:24)
[2019-09-22] MEDS: PREDNISONE 20MG TABLET PO SCH (08:30)
[2019-09-22] MEDS: ENOXAPARIN 40MG/0.4ML SYR SUBCUT SCH (08:31)
[2019-09-22] MEDS: IPRATROPIUM/ALBUTEROL 0.5-3(2.5)MG/3ML NEB HHN SCH (12:16)
[2019-09-22 20:00] VITALS: BP 113/66
[2019-09-23] VITALS: BP 116/71
[2019-09-23] MEDS: IPRATROPIUM/ALBUTEROL 0.5-3(2.5)MG/3ML NEB HHN SCH ×4 (01:02→21:41)
[2019-09-23] MEDS: DILTIAZEM HCL 60MG TABLET PO SCH ×4 (01:08→17:36)
[2019-09-23 04:00] VITALS: BP 123/69
[2019-09-23] MEDS: THEOPHYLLINE ANHYDROUS 80 MG/15 ML 120ML PO SCH ×3 (05:39→20:32)
[2019-09-23] MEDS: FAMOTIDINE 20MG TABLET PO SCH ×2 (09:27→20:32)
[2019-09-23] MEDS: ENOXAPARIN 40MG/0.4ML SYR SUBCUT SCH (09:27)
[2019-09-23] MEDS: PREDNISONE 20MG TABLET PO SCH (09:27)
[2019-09-23 20:00] VITALS: BP 116/74
[2019-09-24] VITALS: BP 112/63
[2019-09-24] MEDS: DILTIAZEM HCL 60MG TABLET PO SCH ×4 (00:48→17:05)
[2019-09-24 04:00] VITALS: BP 126/69
[2019-09-24] MEDS: THEOPHYLLINE ANHYDROUS 80 MG/15 ML 120ML PO SCH ×3 (05:34→21:11)
[2019-09-24] MEDS: IPRATROPIUM/ALBUTEROL 0.5-3(2.5)MG/3ML NEB HHN SCH ×2 (07:56→16:55)
[2019-09-24 08:00] VITALS: BP 111/73
[2019-09-24] MEDS: PREDNISONE 20MG TABLET PO SCH (08:42)
[2019-09-24] MEDS: FAMOTIDINE 20MG TABLET PO SCH ×2 (08:42→21:11)
[2019-09-24] MEDS: ENOXAPARIN 40MG/0.4ML SYR SUBCUT SCH (08:42)
[2019-09-24 16:00] VITALS: BP 115/72
[2019-09-24 18:21] LABS: BG BASE EXCESS 7.3 mmol/L (-2.0-2.0); BG CARBOXYHEMOGLOBIN 0.4 % (0.5-1.5); BG DEOXYHEMOGLOBIN 8.5 % (0.0-5.0); BG FRACTION INSPIRED OXYGEN 21; BG HCO3 ACT 35.8 mmol/L (22.0-26.0); BG METHEMOGLOBIN 0.3 % (0.0-1.5); BG OXYGEN SATURATION 91.4 % (92.0-98.5); BG OXYHEMOGLOBIN 90.8 % (94.0-97.0); BG PCO2 69.4 mmHg (35.0-45.0); BG PO2 63.1 mmHg (75.0-100.0); BG SAMPLE SITE RIGHT RADIAL; BG TOTAL HEMOGLOBIN 13.7 g/dL (12.0-18.0); BG VENT MODE ROOM AIR
[2019-09-24 20:00] VITALS: BP 123/70
[2019-09-25] MEDS: DILTIAZEM HCL 60MG TABLET PO SCH ×4 (00:54→17:50)
[2019-09-25] MEDS: IPRATROPIUM/ALBUTEROL 0.5-3(2.5)MG/3ML NEB HHN SCH ×4 (01:26→21:13)
[2019-09-25 04:00] VITALS: BP 122/71
[2019-09-25] MEDS: THEOPHYLLINE ANHYDROUS 80 MG/15 ML 120ML PO SCH ×3 (05:23→20:43)
[2019-09-25 08:00] VITALS: BP 115/71
[2019-09-25] MEDS ORDERED: ATROV INH (08:21)
[2019-09-25] MEDS ORDERED: DILT240C91 MT (08:21)
[2019-09-25] MEDS ORDERED: PRED5TAB48 MT (08:21)
[2019-09-25] MEDS ORDERED: ALBU18HF2 IH (08:21)
[2019-09-25] MEDS: FAMOTIDINE 20MG TABLET PO SCH ×2 (08:41→20:43)
[2019-09-25] MEDS: ENOXAPARIN 40MG/0.4ML SYR SUBCUT SCH (08:42)
[2019-09-25] MEDS: PREDNISONE 20MG TABLET PO SCH (08:42)
[2019-09-25 12:00] VITALS: BP 124/74
[2019-09-25 15:40] VITALS: BP 122/83
[2019-09-25 20:00] VITALS: BP 130/76
[2019-09-26] VITALS: BP 132/77
[2019-09-26] MEDS: DILTIAZEM HCL 60MG TABLET PO SCH ×4 (00:46→17:01)
[2019-09-26 04:00] VITALS: BP 124/77
[2019-09-26] MEDS: THEOPHYLLINE ANHYDROUS 80 MG/15 ML 120ML PO SCH ×3 (05:18→21:09)
[2019-09-26 08:00] VITALS: BP 135/64
[2019-09-26] MEDS: PREDNISONE 20MG TABLET PO SCH (08:59)
[2019-09-26] MEDS: FAMOTIDINE 20MG TABLET PO SCH ×2 (08:59→21:09)
[2019-09-26] MEDS: ENOXAPARIN 40MG/0.4ML SYR SUBCUT SCH (08:59)
[2019-09-26] MEDS: ACETAMINOPHEN 325MG TABLET PO PRN (09:02)
[2019-09-26] MEDS: IPRATROPIUM/ALBUTEROL 0.5-3(2.5)MG/3ML NEB HHN SCH ×2 (09:20→15:10)
[2019-09-26 12:00] VITALS: BP 124/72
[2019-09-26 16:00] VITALS: BP 129/71
[2019-09-26 20:00] VITALS: BP 126/81
[2019-09-27] VITALS: BP 121/85
[2019-09-27] MEDS: DILTIAZEM HCL 60MG TABLET PO SCH ×4 (00:34→17:02)
[2019-09-27] MEDS: IPRATROPIUM/ALBUTEROL 0.5-3(2.5)MG/3ML NEB HHN SCH ×3 (01:21→15:13)
[2019-09-27 04:00] VITALS: BP 119/70
[2019-09-27] MEDS: THEOPHYLLINE ANHYDROUS 80 MG/15 ML 120ML PO SCH ×3 (05:30→22:43)
[2019-09-27 06:53] LABS: CHLORIDE 99 mEq/L (98-107)
[2019-09-27 07:22] LABS: EOSINOPHILS % 1.6 % (0.0-5.0); HEMATOCRIT. 43.2 % (42.0-52.0); LYMPHOCYTES % 23.8 % (20.0-50.0); MEAN CORPUSCULAR HEMOGLOBIN 29.7 pg (28.0-32.0); MEAN CORPUSCULAR VOLUME 91.4 fL (80.0-94.0); MEAN PLATELET VOLUME 8.4 fl (7.4-10.4); MONOCYTES % 12.2 % (2.0-8.0); NEUTROPHILS % 61.4 % (40.0-76.0); PLATELET 78 x1000/uL (130-400); RED BLOOD CELL COUNT 4.73 mill/uL (4.7-6.1); RED CELL DISTRIBUTION WIDTH 16.6 % (11.6-14.6)
[2019-09-27 08:00] VITALS: BP 100/61
[2019-09-27] MEDS: PREDNISONE 20MG TABLET PO SCH (08:24)
[2019-09-27] MEDS: FAMOTIDINE 20MG TABLET PO SCH ×2 (08:24→21:04)
[2019-09-27] MEDS: ENOXAPARIN 40MG/0.4ML SYR SUBCUT SCH (08:25)
[2019-09-27 12:00] VITALS: BP 117/64
[2019-09-27 20:00] VITALS: BP 132/84
[2019-09-28] VITALS: BP 100/54
[2019-09-28 04:00] VITALS: BP 131/80
[2019-09-28] MEDS: DILTIAZEM HCL 60MG TABLET PO SCH ×2 (05:07)
[2019-09-28] MEDS: THEOPHYLLINE ANHYDROUS 80 MG/15 ML 120ML PO SCH (05:08)
[2019-09-28] MEDS: IPRATROPIUM/ALBUTEROL 0.5-3(2.5)MG/3ML NEB HHN SCH (07:29)
[2019-09-28 08:00] VITALS: BP 109/67
[2019-09-28] MEDS ORDERED: PREDNISONE 10MG TABLET PO SCH (09:00)
[2019-09-28] MEDS: FAMOTIDINE 20MG TABLET PO SCH (10:01)
[2019-09-28 10:14] VITALS: BP 109/67
== END 2019-09-28 11:00 | disposition home or self-care (01) | DRG 816 ==
LOC: ER 02:35 → 5EST 04:48 → ENRESERV 07:22 → 6EST 09-07 12:51
PROVIDERS: ADMIT Internal Medicine; ATTEND Internal Medicine
DX: T40.5X1A Poisoning by cocaine, accidental (unintentional), initial encounter (principal); J96.21 Acute and chronic respiratory failure with hypoxia; G92 Toxic encephalopathy; I13.2 Hypertensive heart and chronic kidney disease with heart failure and with stage 5 chronic kidney disease, or end stage renal disease; E44.0 Moderate protein-calorie malnutrition; E87.2 Acidosis; E11.22 Type 2 diabetes mellitus with diabetic chronic kidney disease; R65.10 Systemic inflammatory response syndrome (SIRS) of non-infectious origin without acute organ dysfunction; N18.6 End stage renal disease; J68.0 Bronchitis and pneumonitis due to chemicals, gases, fumes and vapors; F03.90 Unspecified dementia, unspecified severity, without behavioral disturbance, psychotic disturbance, mood disturbance, and anxiety; F20.9 Schizophrenia, unspecified; E87.6 Hypokalemia; F14.10 Cocaine abuse, uncomplicated; F17.210 Nicotine dependence, cigarettes, uncomplicated; D63.8 Anemia in other chronic diseases classified elsewhere; R74.0 Nonspecific elevation of levels of transaminase and lactic acid dehydrogenase [LDH]; J96.22 Acute and chronic respiratory failure with hypercapnia; E03.9 Hypothyroidism, unspecified; E78.5 Hyperlipidemia, unspecified; I35.0 Nonrheumatic aortic (valve) stenosis; I50.33 Acute on chronic diastolic (congestive) heart failure; Z59.0 Homelessness; Z91.14 Patient's other noncompliance with medication regimen; Y92.89 Other specified places as the place of occurrence of the external cause; Z72.89 Other problems related to lifestyle; Z68.21 Body mass index [BMI] 21.0-21.9, adult; Z99.2 Dependence on renal dialysis; J44.1 Chronic obstructive pulmonary disease with (acute) exacerbation; Z71.51 Drug abuse counseling and surveillance of drug abuser
CPT/HCPCS: 36415; 36600; 71045; 80048; 80053; 80305; 80320; 81003; 82375; 82550; 82553; 82805; 83036; 83605; 83735; 83880; 84100; 84484; 85025; 85027; 85379; 93005; 93306; 93970; 94640; 94644; 97116; 97162; 97164; 99291; J0692; J1650; J2405; J2920; J2930; J3480; J7060; J7512; G0480